=== PATIENT | female | born 1960 | race Caucasian/White ===

== ENCOUNTER → 2016-07-31 | Outpatient (CLI) | payer OTHER ==
[~2016-07-31] MED LIST: ANS100 PO; CEPH500C PO; CHOL2000 PO; CYCL10TA6 PO; CYM60 PO; DULO60CA44 PO; FLX10 PO; LEVO75TA5 PO; ROPI0.5T15 PO; TRAM-10 PO; TRAZ1TAB8 PO
[2016-07-31 14:50] LABS: BASO % 0.3 %; BASO ABS # 0.02 K/uL (0-0.2); COMPLETE YES; HEMATOCRIT 41.1 % (37-47); IG% 0.1 %; LYMPH % 49.4 %; LYMPH ABS # 3.54 K/uL (1.2-3.4); MEAN CELL VOLUME 87.3 fL (80-100); MEAN CORPUSCULAR HEMOGLOBIN 28.9 pg (25-34); MEAN CORPUSCULAR HGB CONC 33.1 g/dl (32-36); MEAN PLATELET VOLUME 11.2 fL (7.4-10.4); MONO % 8.9 %; NEUT % 37.3 %; PLATELET COUNT 296 K/uL (130-400); RED BLOOD COUNT 4.71 M/uL (4.2-5.4); WHITE BLOOD COUNT 7.17 K/uL (4.8-10.8)
[2016-07-31 15:03] LABS: PROTHROMBIN TIME (PATIENT) 10.2 SECONDS (9.0-12.0)
[2016-07-31 15:15] LABS: URINE APPEARANCE CLEAR (CLEAR); URINE BILIRUBIN NEG (NEG); URINE COLOR YELLOW; URINE EPITHELIAL CELL AUTO >30 /lpf (0-5); URINE NITRITE NEG (NEG); URINE SPECIFIC GRAVITY 1.007 (1.000-1.030); UROBILINOGEN NEG (NEG)
[2016-07-31 15:16] LABS: BLOOD UREA NITROGEN 16 mg/dl (7-18); BUN/CREATININE RATIO 16.5 (10-20); CALCIUM 8.9 mg/dl (8.5-10.1); CARBON DIOXIDE 30 mmol/L (21-32); CHLORIDE 100 mmol/L (98-107); GLUCOSE 80 mg/dl (70-99); SODIUM 137 mmol/L (136-145)
[2016-07-31 15:17] LABS: MANUAL MICROSCOPIC REQUIRED? NO; REVIEW REQ? NO
== END | disposition home or self-care (01) ==
LOC: C.LABBC 11:15
PROVIDERS: ATTEND Orthopaedic Surgery Orthopaedic Surgery of the Spine
DX: Z01.812 Encounter for preprocedural laboratory examination (principal)

== ENCOUNTER 2016-08-03 08:55 | Observation (INO) | payer OTHER ==
[2016-07-20 09:35] VITALS: BMI 32.0
--- NOTE | 2016-08-01 15:39 | HISTORY & PHYSICAL EXAMINATION ---
DATE OF ADMISSION: 08/03/2016 SUBJECTIVE CHIEF COMPLAINT: She presents with neck pain, left and right shoulder pain. HISTORY OF PRESENT ILLNESS: Patito is a very pleasant 56-year-old female. She is 56 years of age with signs and symptoms of cervical spondylosis and neck pain, ongoing for several months in duration. It is worsening over time. She has tried some conservative care. She was interested in the possibility of surgical intervention to help with some of her symptoms on today's visit. PAST MEDICAL HISTORY: Includes: 1. Problems with anesthesia. 2. Thyroid disease. 3. Fibromyalgia. PRIOR SURGICAL HISTORY: Includes: 1. A hysterectomy. 2. Neck fusion in 2010. 3. Cholecystectomy. 4. Lumpectomy. ALLERGIES: SHE HAS ALLERGIES TO PENICILLINS. CURRENT MEDICATION LIST: Includes vitamin D, Flexeril, trazodone, Voltaren, Cymbalta, Synthroid, Requip, and tramadol. FAMILY AND SOCIAL HISTORY: She is , mother of 2 children. No alcohol or tobacco use. Moderately active lifestyle. She is currently on disability from symptoms of fibromyalgia. REVIEW OF SYSTEMS: MUSCULOSKELETAL: Positive for stiffness, joint pain and weakness. CONSTITUTIONAL: Positive for fatigue, headaches. CARDIOVASCULAR: Negative for any chest pain, palpitations. RESPIRATORY: No asthma or wheezing. GASTROINTESTINAL: No symptoms of nausea or vomiting. GENITOURINARY: Positive for urgency or frequency. PSYCHIATRIC: Positive for some sleep issues. NEUROLOGICAL: Positive for numbness and tingling. HEME/LYMPH: Positive for easiness to bruise. PHYSICAL EXAMINATION: CONSTITUTIONAL: Alert and oriented x3. She is not in too much distress here in the office. She is 5 feet 6 inches, 190 pounds. PSYCHIATRIC: She is alert and oriented x3. HEENT: Normal. NECK: Pharynx is midline and movable. CARDIOVASCULAR: Normal S1, S2; no S3 was auscultated. No heart palpitations. LYMPHATIC: No adenopathy. NEUROLOGICAL: She is weak on the biceps function and triceps function and indian nanny strength on the left side, compared to the right. She is 5/5 on the right side. No fasciculations or clonus or obvious spinal cord compression was noted upon examination. MUSCULOSKELETAL EXAMINATION: Decreased range of motion of the cervical spine. Pain with flexion and extension of the cervical spine, slight pain with percussion. DIAGNOSTIC AND TEST RESULTS: X-rays reviewed in the office today demonstrate excellent construct of a cervical spine performed by Dr. Kent several years ago. Looks like an MRI does show some difficulty below the fusion site, little more mildly above the fusion site. ASSESSMENT AND DIAGNOSES: 1. Cervical spondylosis. 2. Disc protrusion. 3. Worsening clinical scenario with increasing neurological deficits of upper extremities. PLAN: We are going to offer her surgical intervention. We are scheduling her for surgery for anterior cervical discectomy and fusion with left iliac crest bone graft using the Globus Transition system or Coalition system. We have gone over the procedure in detail and described the risks and benefits involved. We also talked about anticipated recovery times. We will follow her up 10-14 days postop for suture removal, staple removal, bandage change. We did provide her with cervical neck collar fitted and asked that she bring that with her on the day of surgery. We will provide her with pain medication as well.
[2016-08-03] VITALS (12 sets, daily range): BP systolic 119–161; BP diastolic 69–85; PULSE 75–103; TEMP 36.2–36.7; O2SAT 93–98; Ht 167.6 cm; Wt 91.2 kg
[~2016-08-03] VITALS: Ht 167.6 cm; Wt 91.2 kg
--- NOTE | 2016-08-03 06:46 | History & Physical Bridge Note ---
H&P Re-Evaluation Bridge Note: I have examined the patient, reviewed the History & Physical and in the interval since the performance of the History & Physical I have noted the following changes of clinical significance: No changes noted
[~2016-08-03 08:55] MED LIST changes: -CEPH500C PO; +CLINDAMYCIN 600 MG/54 ML D5W 54 ML IV SCH; -CYCL10TA6 PO; -DULO60CA44 PO; +LACTATED RINGER'S 1000ML 1,000 ML IV SCH; +NSS 1000ML IV SCH
[2016-08-03] MEDS ORDERED: CLINDAMYCIN 600 MG/54 ML D5W IV ONE (09:14)
[2016-08-03] MEDS ORDERED: SCOPOLAMINE 1.5 MG TDSY TD ONE (09:53)
[2016-08-03] MEDS ORDERED: SCOPOLAMINE 1.5 MG TDSY TD SCH (10:00)
[2016-08-03] MEDS ORDERED: NEOSTIGMINE METHYLSULFATE 5 MG/5 ML SYR ONE (10:01)
[2016-08-03] MEDS ORDERED: ROCURONIUM BROMIDE 10 MG/ML 5 ML VIAL ONE (10:01)
[2016-08-03] MEDS ORDERED: LIDOCAINE HCL 2% 2 ML VIAL (20MG/ML) ONE (10:01)
[2016-08-03] MEDS ORDERED: FENTANYL CITRATE INJ 50 MCG/1 ML 2 ML VIAL ONE ×3 (10:01→11:46)
[2016-08-03] MEDS ORDERED: PROPOFOL IV EMULSION 10 MG/ML 20 ML VIAL IV ONE (10:01)
[2016-08-03] MEDS ORDERED: ONDANSETRON INJ 2 MG/ML 2 ML VIAL ONE (10:01)
[2016-08-03] MEDS ORDERED: DEXAMETHASONE SOD INJ 4 MG/ML VIAL ONE (10:01)
[2016-08-03] MEDS ORDERED: GLYCOPYRROLATE INJ 0.2 MG/ML VIAL ONE (10:01)
[2016-08-03] MEDS ORDERED: MIDAZOLAM HCL 1 MG/ML 2ML VIAL ONE ×2 (10:01→10:18)
[2016-08-03] MEDS ORDERED: BACITRACIN 50000 UNIT VIAL ONE (10:23)
[2016-08-03] MEDS ORDERED: GELATIN SPONGE SZ 100 ONE (10:23)
[2016-08-03] MEDS ORDERED: BUPIVACAINE/EPINEPHRINE 0.5% MPF 1:200,000 30 ML VIAL ONE (10:23)
[2016-08-03] MEDS ORDERED: THROMBIN FOR SOLN 20000 UNIT KIT ONE (10:23)
[2016-08-03] MEDS ORDERED: EpHEDrine SULFATE INJ 50 MG/ML AMP ONE (11:46)
--- NOTE | 2016-08-03 12:08 | [facility] Post Operative Brief Note ---
Immediate Operative Summary Operative Date Aug 03, 2016. Pre-Operative Diagnosis Cervical spondylosis, Disc protrusion Post-Operative Diagnosis same as pre-operative Procedure(s) Performed C6-C7 Anterior Cervical Discectomy and Fusion with Left Iliac Crest Bone Graft Surgeon Dr. Ramon Sims Customer Services Supervisor Surgeon(s) Azar Perez PA-C Estimated Blood Loss 20ml Findings coed compression Specimens NONE Complication(s) None Disposition Recovery Room / PACU
[2016-08-03] MEDS ORDERED: OXYCODONE/ACETAMINOPHEN 5-325 TAB PO PRN (12:15)
[2016-08-03] MEDS ORDERED: FLUMAZENIL 0.1 MG/1 ML 10 ML VIAL IV ONE (12:15)
[2016-08-03] MEDS ORDERED: DEXAMETHASONE INJ 8 MG in SYRINGE 0 ML IV PRN (12:15)
[2016-08-03] MEDS ORDERED: MAGNESIUM HYDROXIDE SUSP 30 ML UDC PO PRN (12:15)
[2016-08-03] MEDS ORDERED: ONDANSETRON INJ 2 MG/ML 2 ML VIAL IV PRN ×2 (12:15→12:30)
[2016-08-03] MEDS ORDERED: LORAZEPAM INJ 0.5 MG in SYRINGE 0.75 ML IV PRN (12:15)
[2016-08-03] MEDS ORDERED: ACETAMINOPHEN IV 1,000 MG in EMPTY BAG 0 ML IV PRN (12:15)
[2016-08-03] MEDS ORDERED: RACEPINEPHRINE 2.25% NEBU SOLN 0.5 ML VIAL INH PRN (12:15)
[2016-08-03] MEDS ORDERED: NALOXONE HCL 0.4 MG/1 ML VIAL/CARP IV PRN ×2 (12:15→12:30)
--- NOTE | 2016-08-03 12:19 | DIAGNOSTIC IMAGING REPORT ---
INTRAOPERATIVE CERVICAL SPINE SINGLE VIEW CLINICAL HISTORY: Anterior cervical discectomy C6-7 COMPARISON STUDY: 07/29/2015 FINDINGS: A single intraoperative fluoroscopic spot images is provided for interpretation. 1 seconds of fluoroscopic time was utilized. Postsurgical changes are evident. There is evidence of a prior anterior cervical discectomy and corpectomy at the C5 level. There is an anterior metallic plate with screws at the C4 and C6 level. The C6-7 surgical level is not visualized due to overlying shoulders. IMPRESSION: Intraoperative radiograph as described above. Electronically signed by: Amando Powers M.D. 08/03/2016 12:18 PM Dictated Date/Time: 08/03/2016 12:15 PM
[2016-08-03] MEDS ORDERED: HYDROmorphone INJ 1 MG/ML SYR ONE (12:24)
--- NOTE | 2016-08-03 12:26 | OPERATIVE REPORT ---
DATE OF OPERATION: 08/03/2016 PREOPERATIVE DIAGNOSIS: Spinal cord compression C6-C7 cervical spine. POSTOPERATIVE DIAGNOSIS: Same. PROCEDURE: Single level ACDF cervical spine at C6-C7 with left structural autograft of the left iliac crest. SURGEON: Dr. Sims. ANGLE DOZER OPERATOR: Azar Perez PA-C. COMPLICATIONS: Zero. BLOOD LOSS: 20 mL in total. Sponge and needle count correct at the close of the procedure. IMPLANTS USED: By the Sense of Skin. DESCRIPTION OF PROCEDURE: The patient was taken to the operating room and general intubated anesthetic provided to the patient, kept supine, scrubbed, prepped, draped in usual sterile fashion. We made a transverse skin incision dissecting the soft tissue in the cervical spine region. We came right down on the vertebral body. We were able to count down to the C6-7 interspace using the old plate as a guide. We did a formal discectomy. I was back through and the posterior longitudinal ligament every visible piece of disc material was evacuated. I was pleased with the decompression. We then went to the left iliac crest, made a skin incision, fascial incision, harvested a piece of structural autograft to fit into discectomy. This structural autograft packed the Globus implant called Coalition, transfixed superior and inferior. We irrigated and closed in layers, cervical spine with 4-0 Monocryl, Steri-Strips on the skin over a [place] drain that was functional. The crest closed with 1 Vicryl, 2-0 and 3-0 nylon on the skin. Sterile dressings applied throughout. Cervical collar applied. The patient extubated to PACU stable. No complications. I attest to the content of the Intraoperative Record and any orders documented therein. Any exceptio ns are noted below.
[2016-08-03] MEDS ORDERED: HYDROmorphone INJ 1 MG/ML SYR IV PRN (12:30)
[2016-08-03] MEDS ORDERED: PROMETHAZINE HCL INJ 12.5 MG in SODIUM CHLORIDE 0.9% 50ML 50 ML IV PRN (12:30)
[2016-08-03] MEDS ORDERED: ATROPINE SULFATE 0.1 MG/ML 5ML SYR IV PRN (12:30)
[2016-08-03] MEDS ORDERED: LABETALOL HCL IV 5 MG/ML 20ML IV PRN (12:30)
[2016-08-03] MEDS ORDERED: EpHEDrine SULFATE INJ 50 MG/ML AMP IV PRN (12:30)
[2016-08-03] MEDS ORDERED: FLUMAZENIL 0.1 MG/1 ML 10 ML VIAL IV PRN (12:30)
[2016-08-03] MEDS ORDERED: DiphenhydrAMINE HCL 50 MG/ML VIAL ONE (13:04)
[2016-08-03] MEDS ORDERED: NURSING VERBAL MED ORDER ONE ×3 (13:05→22:45)
--- NOTE | 2016-08-03 13:20 | Anesthesiology Progress Note ---
Anesthesia Post Op Note Date & Time Aug 03, 2016 at 13:20 Vital Signs Pain Intensity: 7 Vital Signs Past 12 Hours Date Time Temp Pulse Resp B/P Pulse Ox O2 Delivery O2 Flow Rate FiO2 08/03/16 13:10 84 18 145/61 96 Nasal Cannula 4 08/03/16 13:00 96 22 140/79 100 Nasal Cannula 4 08/03/16 12:50 82 12 141/68 95 Nasal Cannula 4 08/03/16 12:40 84 14 157/76 95 Nasal Cannula 4 08/03/16 12:30 84 13 162/77 100 Mask 10 08/03/16 12:20 86 15 147/69 99 Mask 10 08/03/16 12:13 36.0 99 19 140/73 99 Mask 10 08/03/16 09:11 36.6 87 20 161/85 97 Room Air Notes Mental Status: alert / awake / arousable, participated in evaluation Pt Amnestic to Procedure: Yes Nausea / Vomiting: adequately controlled Pain: adequately controlled Airway Patency, RR, SpO2: stable & adequate BP & HR: stable & adequate Hydration State: stable & adequate Anesthetic Complications: no major complications apparent
[2016-08-03] MEDS ORDERED: IV FLUIDS COMPLETED PRN (13:45)
[2016-08-03] MEDS: ACETAMINOPHEN IV 1000MG/100ML IV PRN (15:58)
[2016-08-03] MEDS: SODIUM CHLORIDE 0.9% 1000ML 1,000 ML IV SCH (15:58)
[2016-08-03] MEDS: CHECK SCOPOLAMINE PATCH PLACEMENT SCH ×2 (15:59→22:38)
[2016-08-03] MEDS: HYDROmorphone INJ 0.5 MG/0.5 ML SYR IV PRN ×2 (17:28→22:38)
[2016-08-03] MEDS: DEXAMETHASONE INJ 6 MG in SYRINGE 0 ML IV SCH (17:31)
[2016-08-03] MEDS: CLINDAMYCIN IV 600 MG in DEXTROSE 5% ADD-VANTAGE 50ML 50 ML IV SCH (18:19)
[2016-08-03] MEDS: DOCUSATE SODIUM 100 MG CAP PO SCH (20:20)
[2016-08-03] MEDS: CHOLECALCIFEROL 1000 INTER.UNIT TAB PO SCH (20:21)
[2016-08-03] MEDS ORDERED: TRAZODONE HCL 100 MG TAB PO SCH (21:00)
[2016-08-03] MEDS ORDERED: ROPINIROLE HCL 0.25 MG TAB PO SCH (21:00)
[2016-08-03] MEDS ORDERED: FLURBIPROFEN 100 MG PO SCH (21:00)
[2016-08-03] MEDS ORDERED: COUGH DROP (SUGAR FREE) LOZ 24 LOZ/1 BOX ONE (22:33)
[2016-08-03] MEDS ORDERED: COUGH DROP (SUGAR FREE) LOZ 24 LOZ/1 BOX PO PRN (23:00)
[2016-08-04] VITALS (13 sets, daily range): BP systolic 115–133; BP diastolic 68–73; PULSE 84–96; TEMP 36.5–36.8; O2SAT 92–98
[2016-08-04] MEDS: SODIUM CHLORIDE 0.9% 1000ML 1,000 ML IV SCH (02:02)
[2016-08-04] MEDS: CLINDAMYCIN IV 600 MG in DEXTROSE 5% ADD-VANTAGE 50ML 50 ML IV SCH ×2 (02:02→10:24)
[2016-08-04] MEDS: DEXAMETHASONE INJ 6 MG in SYRINGE 0 ML IV SCH ×2 (02:03→10:24)
[2016-08-04] MEDS: HYDROmorphone INJ 0.5 MG/0.5 ML SYR IV PRN (04:23)
[2016-08-04] MEDS ORDERED: LEVOTHYROXINE 75 MCG TAB PO SCH (06:00)
[2016-08-04] MEDS: ACETAMINOPHEN IV 1000MG/100ML IV PRN (06:29)
--- NOTE | 2016-08-04 07:25 | Discharge Instructions ---
Discharge Instructions Admission Reason for Admission: Cervical Spinal Stenosis, C6-C7 Disc Herniation Discharge Discharge Diagnosis / Problem: cord compression Discharge Goals Goal(s): Improve function Activity Recommendations Activity Limitations: as noted below Lifting Limitations: until after follow-up appointment Exercise/Sports Limitations: until after follow-up appointment May Resume Sexual Activity: after follow-up appointment Shower/Bathe: keep incision dry Driving or Machine Use: home, rest recover . Instructions / Follow-Up Instructions / Follow-Up MEDICATIONS: Please take your prescriptions as instructed at your pre-op appointment. SPECIAL CARE: The following information is intended to answer some of the common questions and concerns regarding your surgery. Each patient is an individual and receives individual counselling throughout the course of treatment, from diagnosis to surgery all the way through recovery. What follows is not an exhaustive list, but should be a useful guide to some of the common questions and concerns patients have regarding their surgeries. These are not provided to keep you from calling us; rather, they give you something accurate and concrete to reference as you recover from your procedure. If you need us, we are available to you. As always, if you are not sure about something, call us at [phone]. MEDICAL EMERGENCIES: For these conditions, call 911 or go to your local hospital-based Emergency Department - not [facility] or equivalent. * Paralysis * Severe chest pain or difficulty breathing * Swelling or redness of either leg Spine procedures can be rather complex and though complications are rare, they do occur. In such cases, effective advice regarding emergency situations cannot always be addressed over the telephone. You may be referred to the emergency department for more effective management of your problem. Activity Limitations: It is important to give your body time to heal, so please limit your activities : * In general, don't do anything that moves your spine too much. You should avoid contact sports, twisting or heavy lifting while you recover. * 5-10 pounds is all you should attempt to lift. * You should not plan on driving for approximately 3 weeks and you should avoid traveling more than 30-45 minutes at a time. Longer trips should be broken down with walking breaks spaced appropriately. * Physical therapy is not usually required. * Walking and good posture practices will help you recover and regain your function. * Avoid straining or sudden changes in position. * In general, the goal is to take it easy and recover. Don't cause any new problems. Just relax. Showers: * Do not take a bath, use a Jacuzzi or hot tub or otherwise submerge your incision. * It is usually safe to take a shower 4-5 days after your surgery. * Your incision does not require any special creams or ointments. * Simply clean it with soap and water, dry and re-dress with a clean bandage afterwards. Incision: * Keep incision clean, dry and protected until your first follow-up appointment. * Some amount of drainage and redness is normal. Any drainage should be fairly clear and not have a foul odor. * If you feel anything is wrong or you have excessive drainage, please call us. * Your stitches and beti will be removed 10-14 days after your surgery. At the time of your first post-op visit. * Neck surgeries are typically closed with a suture underneath the skin. The steri-strips over the incision should be maintained until we see you in the office. Bracing: * You may be provided with a back or neck brace to encourage good posture and prevent injury. It will remind you not to do too much as you heal and will alert others to the fact that you have had a surgery. * Back braces may be removed for showers and when you are resting at home. They must be worn when you are walking around for any period of time or for travel. * For neck surgery, you will likely be provided with two cervical collars. The soft collar ([place] or foam rubber) is worn most commonly throughout the day and while sleeping. The plastic collar (provided at the hospital) is for showering/bathing. * Except while eating, collars should remain in place. More specifically, bracing is provided for a purpose and should be worn. * Please obtain your brace or collars prior to your operation and bring them to the hospital with you on the day of surgery. * You should also bring your collars to your post-op appointment with Dr. Sims. You should always take good care of your body and practice healthy habits, especially following surgery. You should: * Follow your doctor's treatment plan * Sit and stand properly with good posture (ears over shoulders, shoulders over hips) Don't slouch * Learn to lift correctly * Exercise regularly (low-impact aerobic exercise is especially good, but check with your doctor first) * Generally, be up and walking for 5-10 minutes at a time at least 3-4 times per day from the day you get home * Increasing walking to tolerance until you can walk for 20-30 minutes at a time * Attain and maintain a healthy body weight * Eat healthy foods ( a well-balanced, low-fat diet rich in fruits and vegetables) and get enough calcium * Avoid excessive use of alcohol When to call our office - If you notice any of the following: * Increased pain not relieve by pain medicine * Fevers greater then 100 degrees F, chills or flu symptoms * Increased redness around incision * Drainage from the incision that is not clear * Any foul smelling drainage * Swelling or fluid collection beneath the skin Miscellaneous: * In the hospital, you may be given a walker or cane for support while walking. These are temporary needs and are intended to prevent injuries due to falls. You may discontinue them when you feel strong and steady enough on your feet. * Sleep in a comfortable position. We find that many patients find a lounge chair or recliner with several pillows to be beneficial in the early post-operative period. * The support stockings should be used for 7-10 days and may be discontinued when you are back to walking more and conducting usual household activities. No problem is insignificant. We are here to help you and get you well. Contact us at [phone]. Definitions: Foraminotomy: If part of the disc or a bone spur (osteophyte) is pressing on a nerve as it leaves the vertebra (through an exit called the foramen), a foraminotomy may be done. Otomy means "to make an opening." A foraminotomy is making the opening of the foramen larger, so the nerve can exit without being compressed. Laminotomy: Similar to the foraminotomy, a laminotomy makes a larger opening, this time in your bony plate protecting your spinal canal and spinal cord (the lamina). The lamina may be pressing on your nerve, so the surgeon may make more room for the nerves using a laminotomy. Laminectomy: Sometimes, a laminotomy is not sufficient. The surgeon may need to remove all or part of the lamina. This procedure is called a laminectomy. This can often be done at many levels without any harmful effects. Current Hospital Diet Patient's current hospital diet: Clear Liquid Diet Discharge Diet Recommended Diet: Regular Diet (start slow, advance as toerated) Fluid Restriction: None Procedures Procedures Performed: C6-C7 Anterior Cervical Discectomy and Fusion with Left Iliac Crest Bone Graft Pending Studies Studies pending at discharge: no Medical Emergencies . Who to Call and When: Medical Emergencies: If at any time you feel your situation is an emergency, please call 911 immediately. . Non-Emergent Contact Non-Emergency issues call your: Surgeon Call Non-Emergent contact if: temperature is above 101.5 . "Provider Documentation" section prepared by Ramon Sims. VTE Core Measure Inpt VTE Proph given/why not?: Treatment not tolerated
[2016-08-04] MEDS: CHECK SCOPOLAMINE PATCH PLACEMENT SCH (07:57)
[2016-08-04] MEDS: HYDROCODONE/ACETAMOPHEN 5/325MG TAB PO PRN ×2 (08:09→13:25)
[2016-08-04] MEDS ORDERED: DULOXETINE HCL 60 MG CAP PO SCH (09:00)
--- NOTE | 2016-08-04 09:07 | DISCHARGE SUMMARY ---
SUBJECTIVE: Minimal complaints of pain. Alert, oriented. No chest pain, shortness of breath, swallowing difficulty. OBJECTIVE: Vital signs stable. Neurologically intact. Lab work not indicated. ASSESSMENT: Status post single-level anterior cervical discectomy and fusion cervical spine, improved, stable. DISPOSITION: Includes instruction, precautions, education given to her and in the office. We will discharge her home later today around lunchtime. We will see her back in the office in approximately 10 days.
[2016-08-04] MEDS: CHOLECALCIFEROL 1000 INTER.UNIT TAB PO SCH (09:20)
[2016-08-04] MEDS: DOCUSATE SODIUM 100 MG CAP PO SCH (10:24)
--- NOTE | 2016-08-04 13:34 | Anesthesiology Progress Note ---
Anesthesia Post Op Note Date & Time Aug 04, 2016 at 08:00 Vital Signs Vital Signs Past 12 Hours Date Time Temp Pulse Resp B/P Pulse Ox O2 Delivery O2 Flow Rate FiO2 08/04/16 12:54 36.8 91 17 95 Room Air 08/04/16 12:30 36.8 84 17 133/73 95 Room Air 1.0 91 08/04/16 12:21 36.8 84 17 133/73 95 Room Air 08/04/16 11:12 92 14 98 Room Air 08/04/16 10:15 36.8 84 17 133/73 95 Room Air 1.0 91 08/04/16 10:15 36.6 92 17 131/69 95 Room Air 08/04/16 10:15 98 08/04/16 08:20 36.6 91 16 124/68 92 Room Air 08/04/16 08:05 Room Air 08/04/16 08:02 36.6 92 14 127/72 95 Room Air 1.0 90 08/04/16 07:29 92 14 95 Room Air 08/04/16 06:15 36.6 90 17 127/72 95 Room Air 08/04/16 04:12 36.5 85 16 115/68 96 Room Air 1.0 08/04/16 03:26 96 14 94 Nasal Cannula 1.0 08/04/16 02:04 36.5 84 16 115/68 93 Nasal Cannula 1.0 Humidified Oxygen Notes Mental Status: alert / awake / arousable, participated in evaluation Pt Amnestic to Procedure: Yes Nausea / Vomiting: adequately controlled Pain: adequately controlled Airway Patency, RR, SpO2: stable & adequate BP & HR: stable & adequate Hydration State: stable & adequate Anesthetic Complications: no major complications apparent pt breathing comfortable, pt states they have no difficulties breathing and no obvious s/s of airway obstruction
[2016-08-05] MEDS ORDERED: BISACODYL 10 MG SUPP PR PRN (06:00)
[2016-08-05] MEDS ORDERED: BISACODYL 5 MG TABEC PO PRN (06:00)
== END 2016-08-04 13:38 | disposition home or self-care (01) ==
LOC: ENRESERVTM → ENRESERVDT → C.ACU 08:55 → C.3E 12:12
PROVIDERS: ADMIT Orthopaedic Surgery Orthopaedic Surgery of the Spine; ATTEND Orthopaedic Surgery Orthopaedic Surgery of the Spine
DX: M47.12 Other spondylosis with myelopathy, cervical region (principal); M50.223 Other cervical disc displacement at C6-C7 level; M79.7 Fibromyalgia; E07.9 Disorder of thyroid, unspecified; Z90.79 Acquired absence of other genital organ(s); Z90.710 Acquired absence of both cervix and uterus; Z88.0 Allergy status to penicillin

== ENCOUNTER 2016-08-19 14:37 | Emergency (ER) | payer OTHER ==
[~2016-08-19] VITALS: Ht 167.6 cm; Wt 91.0 kg
[~2016-08-19 14:37] MED LIST changes: -CLINDAMYCIN 600 MG/54 ML D5W 54 ML IV SCH; -LACTATED RINGER'S 1000ML 1,000 ML IV SCH; -NSS 1000ML IV SCH
[2016-08-19 14:39] VITALS: TEMP 36.9; Ht 167.6 cm; Wt 91.0 kg
[2016-08-19] MEDS ORDERED: DULO60CA44 PO (14:53)
[2016-08-19] MEDS ORDERED: CYCL10TA6 PO (14:53)
[2016-08-19 15:19] LABS: BASO % 0.2 %; BASO ABS # 0.02 K/uL (0-0.2); COMPLETE YES; EOS % 2.7 %; HEMATOCRIT 39.1 % (37-47); IG% 0.2 %; LYMPH % 40.3 %; LYMPH ABS # 3.42 K/uL (1.2-3.4); MEAN CELL VOLUME 86.3 fL (80-100); MEAN CORPUSCULAR HEMOGLOBIN 29.4 pg (25-34); MEAN PLATELET VOLUME 10.2 fL (7.4-10.4); MONO % 6.6 %; PLATELET COUNT 316 K/uL (130-400); RED BLOOD COUNT 4.53 M/uL (4.2-5.4); WHITE BLOOD COUNT 8.48 K/uL (4.8-10.8)
--- NOTE | 2016-08-19 15:28 | EMERGENCY ROOM VISIT NOTE ---
History First contact with patient: 14:49 Chief Complaint: WOUND INFECTION Stated Complaint: INCISION INFECTED Nursing Triage Summary: Pt had neck surgery by Dr Sims 2 weeks ago Pt concerned incision may be infected Incision started draining last night History of Present Illness The patient is a 56 year old female who presents to the Emergency Room with complaints of incision and drainage. The patient had neck surgery by Dr. Sims 2 weeks ago. It was an anterior approach. The patient states she has been doing very well. She states that last night she noticed a spot on the right side of the incision began to drain a small amount of pus. She states she has had chills, headache and flulike symptoms. She states that she tends to get headaches. She denies any earache, sore throat, cough. She contacted Dr. Das and was referred to the emergency department. Review of Systems A 10 system review of systems was completed with positives and pertinent negatives listed in the HPI. Past Medical/Surgical History Medical Problems: (1) Cervical disc disease Social History Smoking Status: Never Smoker Housing Status: lives with family Current/Historical Medications Scheduled Cephalexin Monohydrate (Keflex), 500 MG PO TID Cholecalciferol (Vitamin D3), 2 CAP PO BID Duloxetine Hcl (Cymbalta), 60 MG PO QAM Flurbiprofen (Flurbiprofen), 100 MG PO QPM Levothyroxine Sodium (Levothyroxine Sodium), 1 TAB PO QAM Ropinirole (Requip), 0.5 MG PO QPM Trazodone Hcl (Desyrel), 100 MG PO HS Scheduled PRN Cyclobenzaprine Hcl (Flexeril), 10 MG PO Q6 PRN for Pain Tramadol (Ultram), 50 MG PO Q4H PRN for Pain Allergies Coded Allergies: Penicillins (Verified Allergy, Unknown, RASH, 08/19/16) Physical Exam Vital Signs Date Time Temp Pulse Resp B/P Pulse Ox O2 Delivery O2 Flow Rate FiO2 08/19/16 16:00 75 18 138/78 99 08/19/16 14:39 36.9 105 18 149/90 94 Room Air Physical Exam VITALS: Vitals are noted on the nurse's note and reviewed by myself. Vital signs stable. The patient is afebrile. GENERAL: This is a 56-year-old female, in no acute distress, nondiaphoretic, well-developed well-nourished. SKIN: There is a healing surgical incision present in the anterior neck. The right side of the incision reveals a pinpoint area of purulent drainage. There are no visible sutures. There is no tenting of the skin. Capillary reflex less than 2 seconds. HEAD: Normocephalic atraumatic. EARS: External auditory canals clear, tympanic membranes pearly hager without erythema or effusion bilaterally. EYES: Pupils equal round and reactive to light and accommodation. Conjunctivae without injection, sclerae without icterus. Extraocular movements intact. NOSE: Patent, turbinates without inflammation or discharge. MOUTH: Mucous membranes moist. Tonsils are not enlarged. Pharynx without erythema or exudate. Uvula midline. Airway patent. Tongue does not deviate. NECK: Supple without nuchal rigidity. No JVD. HEART: Regular rate and rhythm without murmurs gallops or rubs. LUNGS: Clear to auscultation bilaterally without wheezes, rales or rhonchi. No retractions or accessory muscle use. MUSCULOSKELETAL: No muscle atrophy, erythema, or edema noted. Full range of motion in all extremities.. Normal gait. Strength 5/5 throughout. NEURO: Patient was alert and oriented to person place and time. No focal neurological deficits. Medical Decision & Procedures Laboratory Results 08/19/16 15:06 Red Blood Count 4.53, Mean Corpuscular Volume 86.3, Mean Corpuscular Hemoglobin 29.4, Mean Corpuscular Hemoglobin Concent 34.0, Mean Platelet Volume 10.2, Neutrophils (%) (Auto) 50.0, Lymphocytes (%) (Auto) 40.3, Monocytes (%) (Auto) 6.6, Eosinophils (%) (Auto) 2.7, Basophils (%) (Auto) 0.2, Neutrophils # (Auto) 4.23, Lymphocytes # (Auto) 3.42, Monocytes # (Auto) 0.56, Eosinophils # (Auto) 0.23, Basophils # (Auto) 0.02 08/19/16 15:06 Test 08/19/16 15:06 White Blood Count 8.48 K/uL (4.8-10.8) Red Blood Count 4.53 M/uL (4.2-5.4) Hemoglobin 13.3 g/dL (12.0-16.0) Hematocrit 39.1 % (37-47) Mean Corpuscular Volume 86.3 fL (80-100) Mean Corpuscular Hemoglobin 29.4 pg (25-34) Mean Corpuscular Hemoglobin Concent 34.0 g/dl (32-36) Platelet Count 316 K/uL (130-400) Mean Platelet Volume 10.2 fL (7.4-10.4) Neutrophils (%) (Auto) 50.0 % Lymphocytes (%) (Auto) 40.3 % Monocytes (%) (Auto) 6.6 % Eosinophils (%) (Auto) 2.7 % Basophils (%) (Auto) 0.2 % Neutrophils # (Auto) 4.23 K/uL (1.4-6.5) Lymphocytes # (Auto) 3.42 K/uL (1.2-3.4) Monocytes # (Auto) 0.56 K/uL (0.11-0.59) Eosinophils # (Auto) 0.23 K/uL (0-0.5) Basophils # (Auto) 0.02 K/uL (0-0.2) RDW Standard Deviation 45.0 fL (36.4-46.3) RDW Coefficient of Variation 14.4 % (11.5-14.5) Immature Granulocyte % (Auto) 0.2 % Immature Granulocyte # (Auto) 0.02 K/uL (0.00-0.02) Anion Gap 7.0 mmol/L (3-11) Est Creatinine Clear Calc Drug Dose 73.8 ml/min Estimated GFR () 74.9 Estimated GFR (Non- 64.6 BUN/Creatinine Ratio 15.6 (10-20) Calcium Level 9.3 mg/dl (8.5-10.1) Total Bilirubin 0.4 mg/dl (0.2-1) Aspartate Amino Transf (AST/SGOT) 21 U/L (15-37) Alanine Aminotransferase (ALT/SGPT) 39 U/L (12-78) Alkaline Phosphatase 122 U/L (45-117) Total Protein 7.3 gm/dl (6.4-8.2) Albumin 3.5 gm/dl (3.4-5.0) Globulin 3.8 gm/dl (2.5-4.0) Albumin/Globulin Ratio 0.9 (0.9-2) ED Course The patient was seen and examined. Previous visits were reviewed. She does not have a fever. She does not have a leukocytosis. The patient had a pinpoint pustule-like area to the right side of the incision. I suspect that this is in the area of the absorbable suture. There is no significant swelling , erythema, fluctuance or edema. I feel that this more likely represents irritation and a small pustule related to absorbable suture and not truly a postoperative infection. A culture was obtained of the small drainage. The patient will be placed on Keflex empirically. She should contact Dr. barron office on Sunday to schedule a follow-up appointment. She should return with fevers or any other worsening symptoms. The patient was also seen and examined by who agrees with the assessment and treatment plan. Medical Decision Differential diagnosis includes cellulitis, pustule, postoperative infection, among others Impression Primary Impression: Draining postoperative wound Departure Information Dispostion Home / Self-Care Condition GOOD Prescriptions Cephalexin Monohydrate (Keflex) 500 Mg Cap 500 MG PO TID for 7 Days, #21 CAP Prov: Mimi Strange PA-C 08/19/16 Referrals Kaitlyn Mendoza (PCP) Ramon Sims, DO Patient Instructions My [facility] Additional Instructions Keflex every 8 hours for 7 days Return with fevers, swelling, worsening redness Otherwise, follow up with Dr. Sims next week Problem Qualifiers Primary Impression: Draining postoperative wound Encounter type: initial encounter Qualified Codes: T81.89XA - Other complications of procedures, not elsewhere classified, initial encounter
[2016-08-19 15:37] LABS: BUN/CREATININE RATIO 15.6 (10-20); CALCIUM 9.3 mg/dl (8.5-10.1); CREATININE 0.99 mg/dl (0.60-1.20); POTASSIUM 3.9 mmol/L (3.5-5.1)
[2016-08-19 15:40] LABS: ALB/GLOB RATIO 0.9 (0.9-2)
[2016-08-19] MEDS ORDERED: CEPH500C PO (15:41)
[2016-08-19 16:00] VITALS: BP 138/78; PULSE 75; O2SAT 99
--- NOTE | 2016-08-19 22:00 | EMERGENCY ROOM VISIT NOTE ---
ED Visit Note First contact with patient: 14:49 I have personally evaluated and examined this patient. I agree with assessment and plan of Genna Strange PA-C. Healing anterior neck approach for cervical surgery recently with some drainage from wound. Looks good without fluctuance, swelling, TTP, erythema. No respiratory issue. Given small exudate seems reasonable starting abx while awaiting culture. Follow up in 48 hours with surgeon.
--- NOTE | 2016-08-21 14:32 | Pharmacy Progress Note ---
ED Pharmacist Culture FollowUp Date of Service: Aug 21, 2016. Patient's surface wound cx from 08/19/16 is growing corynebacterium sp. This culture was taken from an anterior neck surgical incision. The provider's notes from that day reported the patient's wound did not appear infected as there was no erythema, no fluctuance, and no edema. No leukocytosis or L shift were noted on the patient's labs. Provider's felt pin-point drainage from one side of wound was due to local irritation from sutures. The patient was discharged with a Rx for Keflex 500mg TID x 7 days, which may or may not cover corynebacterium sp - sensitivities will not be reported. She was to f/u today with surgeon. No action required at this time.
== END 2016-08-19 16:02 | disposition home or self-care (01) ==
LOC: C.EDB 14:38 → C.EDD 16:02
DX: T81.89XA Other complications of procedures, not elsewhere classified, initial encounter (principal); Y84.9 Medical procedure, unspecified as the cause of abnormal reaction of the patient, or of later complication, without mention of misadventure at the time of the procedure; Z88.0 Allergy status to penicillin

== ENCOUNTER → 2017-01-09 | Outpatient (CLI) | payer OTHER ==
[~2017-01-09] MED LIST changes: +CYCL10TA6 PO; -CYM60 PO; +DULO60CA44 PO; -FLX10 PO
--- NOTE | 2017-01-10 07:45 | MAMMOGRAPHY REPORT ---
BILATERAL DIGITAL SCREENING MAMMOGRAM TOMOSYNTHESIS WITH CAD: 01/09/2017 CLINICAL HISTORY: Routine screening. Patient has no complaints. TECHNIQUE: Breast tomosynthesis in addition to standard 2D mammography was performed. Current study was also evaluated with a Computer Aided Detection (CAD) system. COMPARISON: Comparison is made to exams dated: 01/07/2016 mammogram, 01/05/2015 mammogram, 01/02/2014 mamm ogram - [facility], 10/29/2012 mammogram, 11/01/2011 mammogram, and 10/24/2011 [facility] BREAST COMPOSITION: There are scattered areas of fibroglandular density in both breasts. FINDINGS: The parenchymal pattern is unchanged. No developing mass, architectural distortion or clus ter of suspicious microcalcifications is seen in either breast. IMPRESSION: ACR BI-RADS CATEGORY 2: BENIGN There is no mammographic evidence of malignancy. A 1 year screening mammogram is recommended. The pa tient will receive written notification of the results. Approximately 10% of breast cancers are not detected with mammography. A negative mammographic report should not delay biopsy if a clinically suggestive mass is present. Olivia Thomas M.D. ay/:01/09/2017 18:09:20 Aquatics Manager: Tamera Carey, [facility] letter sent: Normal 1/2 BI-RADS Code: ACR BI-RADS Category 2: Benign
== END | disposition home or self-care (01) ==
LOC: C.MAMM 08:44
PROVIDERS: ATTEND Nurse Practitioner Family
DX: Z12.31 Encounter for screening mammogram for malignant neoplasm of breast (principal)

== ENCOUNTER → 2017-04-16 | Outpatient (CLI) | payer OTHER ==
[~2017-04-16] MED LIST changes: -TRAZ1TAB8 PO; +TRAZ1TAB9 PO
--- NOTE | 2017-04-16 08:09 | DIAGNOSTIC IMAGING REPORT ---
RIGHT GLUTEAL ULTRASOUND CLINICAL HISTORY: ENLARGING MASS RT BUTTOCK COMPARISON STUDY: None FINDINGS: Corresponding to the palpable mass, there is a subcutaneous mixed echogenicity shadowing 13 mm nodule within the right gluteal region. Immediately adjacent to this is a 5 mm hypoechoic nodule. Given the location of the nodule, fat necrosis is within the differential. The lesion however has a nonspecific ultrasonographic appearance. IMPRESSION: The palpable right gluteal mass corresponds to a mixed echogenicity 13 mm shadowing nodule with an adjacent 5 mm hypoechoic nodule. This lesion has a nonspecific ultrasonographic appearance. Electronically signed by: Amando Powers M.D. 04/16/2017 8:08 AM Dictated Date/Time: 04/16/2017 8:03 AM
== END | disposition home or self-care (01) ==
LOC: C.ULTR 07:25
PROVIDERS: ATTEND Nurse Practitioner Family
DX: R22.9 Localized swelling, mass and lump, unspecified (principal)

== ENCOUNTER → 2017-05-08 | Outpatient (CLI) | payer OTHER ==
[~2017-05-08] MED LIST changes: +DULO-24 PO; +HYDR-5688 PO; +TRAZ-122 PO; -TRAZ1TAB9 PO
[2017-05-08 15:44] LABS: HEMATOCRIT 41.9 % (37-47); HEMOGLOBIN 13.8 g/dL (12.0-16.0); MEAN CELL VOLUME 88.8 fL (80-100); MEAN CORPUSCULAR HEMOGLOBIN 29.2 pg (25-34); MEAN CORPUSCULAR HGB CONC 32.9 g/dl (32-36); MEAN PLATELET VOLUME 10.9 fL (7.4-10.4); PLATELET COUNT 289 K/uL (130-400); RED CELL DISTRIBUTION WIDTH SD 45.6 fL (36.4-46.3); WHITE BLOOD COUNT 6.91 K/uL (4.8-10.8)
[2017-05-08 15:54] LABS: BLOOD UREA NITROGEN 18 mg/dl (7-18); CALCIUM 9.3 mg/dl (8.5-10.1); CARBON DIOXIDE 29 mmol/L (21-32); CREATININE 1.09 mg/dl (0.60-1.20); GLUCOSE 129 mg/dl (70-99); POTASSIUM 3.7 mmol/L (3.5-5.1); SODIUM 136 mmol/L (136-145)
[2017-05-08 16:05] LABS: BASO % 0.4 %; BASO ABS # 0.03 K/uL (0-0.2); EOS % 4.1 %; EOS ABS # 0.28 K/uL (0-0.5); IG# 0.01 K/uL (0.00-0.02); LYMPH % 51.2 %; LYMPH ABS # 3.54 K/uL (1.2-3.4); MONO % 4.3 %; NEUT % 39.9 %; NEUT ABS # 2.75 K/uL (1.4-6.5)
== END | disposition home or self-care (01) ==
LOC: C.LAB 14:41
PROVIDERS: ATTEND Surgery
DX: M79.9 Soft tissue disorder, unspecified (principal)

== ENCOUNTER → 2017-05-18 | Day surgery (SDC) | payer OTHER ==
[2017-05-09 13:51] VITALS: Ht 165.1 cm; Wt 90.5 kg
[~2017-05-18] VITALS: Ht 165.1 cm; Wt 90.5 kg
[~2017-05-18] MED LIST changes: +ATROPINE SULFATE 0.1 MG/ML 5ML SYR IV PRN; +BUPIVACAINE/EPINEPHRINE 0.5% MPF 1:200,000 30 ML VIAL ONE; +CLINDAMYCIN PHOS 150 MG/ML 2 ML VIAL IV SCH; -DULO60CA44 PO; +FENTANYL CITRATE INJ 50 MCG/1 ML 2 ML VIAL IV PRN; +FENTANYL CITRATE INJ 50 MCG/1 ML 2 ML VIAL ONE; +HYDROCODONE/ACETAMIN 5/325MG TAB PO PRN; +KETOROLAC TROMETHAMINE 30 MG/ML VIAL IV. PRN; +LACTATED RINGER'S 1000ML 1,000 ML IV SCH; +LIDOCAINE HCL 2% 2 ML VIAL (20MG/ML) ONE; +MIDAZOLAM HCL 1 MG/ML 2ML VIAL ONE; +ONDANSETRON INJ 2 MG/ML 2 ML VIAL IV PRN; +ONDANSETRON INJ 2 MG/ML 2 ML VIAL ONE; +PROPOFOL IV EMULSION 10 MG/ML 20 ML VIAL IV ONE; +SODIUM CHLORIDE 0.9% 1000ML 1,000 ML IV SCH; -TRAZ-122 PO; +TRAZ-162 PO
[2017-05-18 07:55] VITALS: TEMP 36.6
--- NOTE | 2017-05-18 08:00 | Discharge Instructions ---
Discharge Instructions Date of Service May 18, 2017. Visit Reason for Visit: Soft Tissue Mass Buttock Discharge Discharge Diagnosis / Problem: Soft Tissue Mass Buttock Discharge Goals Goal(s): Decrease discomfort, Improve function Activity Recommendations Activity Limitations: as noted below Lifting Limitations: no more than 25 pounds, until after follow-up appointment Exercise/Sports Limitations: until after follow-up appointment Shower/Bathe: tomorrow Driving or Machine Use: resume 1 day after discharge (Do not drive while using narcotic pain medication) Anesthesia . Post Anesthesia Instructions: If you have had General Anesthesia or IV Sedation: * Do not drive today. * Resume driving when surgeon permits. * Do not make important decisions or sign legal documents today. * Call surgeon for: 1. Temperature elevations greater than 101 degrees F. 2. Uncontrollable pain. 3. Excessive bleeding. 4. Persistent nausea and vomiting. 5. Medication intolerance (nausea, vomiting or rash). * For nausea and vomiting use only clear liquids such as: tea, soda, bouillon until nausea subsides, then gradually increase diet as tolerated. * If you have any concerns or questions, call your surgeon's office. If physician is unavailable and it is an emergency, call 911 or go to the nearest emergency room. . Instructions / Follow-Up Instructions / Follow-Up You have steri-strips covering your incision. Please allow these to fall off on their own. You have been prescribed [place] to take as needed for pain relief. You may alternate this with Ibuprofen for better pain relief as well. Please follow-up with Dr. Jordan in 2 weeks. Please contact our office at [phone] to schedule an appointment if you have not done so already. Please contact our office with any questions or concerns. [facility] [address] [place] [address]. Diet Recommendations Recommended Home Diet: no limitations, resume previous diet Procedures Procedures Performed: Right Buttock Soft Tissue masses Excision Pending Studies Studies pending at discharge: yes List of pending studies: Pathology Medical Emergencies . Who to Call and When: Medical Emergencies: If at any time you feel your situation is an emergency, please call 911 immediately. . Non-Emergent Contact Non-Emergency issues call your: Primary Care Provider, Surgeon Call Non-Emergent contact if: you have a fever, temperature is above 101.5, your pain is not controlled, your pain is worsening, wound has increased drainage, wound has increased redness, you have any medication questions . . "Provider Documentation" section prepared by Azar Mckenna. . [place] Drug Monitoring Program Search Results: patient reviewed within database, no issues identified
--- NOTE | 2017-05-18 08:03 | [facility] Operative Report ---
Operative Report Operative Date May 18, 2017. Pre-Operative Diagnosis Right Buttock Soft Tissue Mass Post-Operative Diagnosis Same Procedure(s) Performed Right Buttock Soft Tissue masses Excision Surgeon Dr. Jordan Social Problems Specialist Surgeon(s) Morena Mckenna PA-C Estimated Blood Loss 5 ml Findings firm bilobed mass approx 4 cm. Specimens A. Right Buttock Soft Tissue Mass Anesthesia MAC/marcaine Complication(s) None Disposition Recovery Room / PACU Description of Procedure After informed consent was obtained the patient was taken the operating room and placed in a left lateral decubitus position. IV sedation was administered by anesthesia and titrated to effect. After adequate sedation was obtained the area was sterilely prepped and draped in usual fashion. Marcaine with epinephrine was injected to create a field block around the area of the palpable lesion. A horizontal incision directly over it was made was carried down through the soft tissue using electrocautery. It was relatively deep. It was thought on ultrasound to be 2 lesions however it appeared to me to be a bilobed lesion. It was firm and measured probably close to 4 cm. I used traction countertraction and electrocautery to remove it in one large piece and passed that off to be sent to pathology. Small bleeding points were controlled using electrocautery. Thorough irrigation was performed. The wound was closed in several layers using 2-0 Vicryl for deep layers and 4-0 Monocryl for the skin. Benzoin and Steri-Strips as well as a sterile dressing were applied. The patient was awakened and transferred to recovery in stable condition. My physician's anesthesiology physician assistant was present throughout the entire case. He helped prep and drape. Because the lesion was so deep he held retractors during my dissection. He also helped with wound closure and bandage placement I attest to the content of the Intraoperative Record and any orders documented therein. Any exceptions are noted below.
[2017-05-18 08:17] VITALS: BP 128/77; PULSE 79; O2SAT 99
--- NOTE | 2017-05-18 08:18 | Anesthesia Progress Nt - [facility] ---
Anesthesia Post Op Note Date & Time May 18, 2017 at 08:18 Vital Signs Pain Intensity: 0 Vital Signs Past 12 Hours Date Time Temp Pulse Resp B/P (MAP) Pulse Ox O2 Delivery O2 Flow Rate FiO2 05/18/17 08:04 135/82 (99) 05/18/17 07:55 36.6 91 18 173/69 (103) 96 Room Air 05/18/17 06:42 36.2 78 16 151/84 (106) 98 Room Air Notes Mental Status: alert / awake / arousable, participated in evaluation Pt Amnestic to Procedure: Yes Nausea / Vomiting: adequately controlled Pain: adequately controlled Airway Patency, RR, SpO2: stable & adequate BP & HR: stable & adequate Hydration State: stable & adequate Anesthetic Complications: no major complications apparent
== END | disposition home or self-care (01) ==
LOC: X.SURG 06:17
PROVIDERS: ATTEND Surgery
DX: M79.9 Soft tissue disorder, unspecified (principal); Z79.899 Other long term (current) drug therapy; Z98.890 Other specified postprocedural states; Z88.0 Allergy status to penicillin; Z90.49 Acquired absence of other specified parts of digestive tract; Z90.710 Acquired absence of both cervix and uterus; Z90.722 Acquired absence of ovaries, bilateral; Z82.49 Family history of ischemic heart disease and other diseases of the circulatory system; Z80.3 Family history of malignant neoplasm of breast

== ENCOUNTER 2018-10-31 06:35 | Observation (INO) ==
--- NOTE | 2018-08-27 14:46 | PAT Medication Instructions ---
Medication Instructions Date of Service August 27, 2018 Home Medications exxtajbnlb-uvpcdzbkmkqve-pzzu 1 - 2 cap PO Q6H PRN cholecalciferol (vitamin D3) 2,000 unit PO QAM cyclobenzaprine 10 mg PO TID PRN duloxetine 40 mg PO QAM flurbiprofen 100 mg PO HS levothyroxine [Synthroid] 75 mcg PO QAM ropinirole 0.5 mg PO HS tramadol 50 mg PO Q6H PRN ASK your surgeon for instructions qdlxlpmftk-xonxtcqsrpsoe-eiol 1 - 2 cap PO Q6H PRN flurbiprofen 100 mg PO HS STOP taking 24 hours before surgery ropinirole 0.5 mg PO HS DO NOT take the morning of surgery cholecalciferol (vitamin D3) 2,000 unit PO QAM cyclobenzaprine 10 mg PO TID PRN Take morning of surgery With a small sip of water, OTHERWISE NOTHING TO EAT OR DRINK AFTER MIDNIGHT: duloxetine 40 mg PO QAM levothyroxine [Synthroid] 75 mcg PO QAM tramadol 50 mg PO Q6H PRN (okay to take up to 4 hours prior to surgery if needed) Other Notes If you have any questions please call us at [phone] or [phone] or [phone] or [phone]
--- NOTE | 2018-08-28 08:34 | Anesthesiology Consultation ---
Date of Service August 28, 2018 Assessment & Plan (1) Encounter for pre-operative examination: - Hx glidescope intubation (also, patient with decreased cervical extension s/p ACDF)= C6-C7 ACDF= 08/13/16= Grade view 1, Glidescope#3, ETT 7.5 at [facility] Chart Review Chart Review: Acceptable Risk for Surgery and Patient seen in Pre Admission Testing Teaching & Discussion Pre-Anesthesia Teaching/Discussion Notes: Instructed NPO after midnight before surgery,except medications with 15 cc of water. Medication instructions provided according to the PAT guidelines. History Surgery Operation Date: 09/05/18 08:15 Proposed Procedures p Anterior Revision Cervical Spine Surgery, C4-C5, C5-C6, Removal [place], C4- C5, C5-C6, C6-C7 Plate Fixation with Right Iliac Crest Graft - Ramon Sims DO Height/Weight Height: 5 ft 6 in Weight: 96.6 kg Allergies Allergy/AdvReac Type Severity Reaction Status Date / Time topiramate [From Topamax] Allergy Mild Rash Verified 08/23/18 15:00 Penicillins Allergy Unknown RASH Verified 08/23/18 15:00 Medications Home Medications Medication Instructions Recorded Confirmed Last Taken zeinlelmwp-gdqnykouhkioq-haci 1 - 2 cap PO Q6H PRN 08/23/18 08/23/18 Unknown cholecalciferol (vitamin D3) 2,000 unit PO QAM 08/23/18 08/23/18 Unknown [Vitamin D3] cyclobenzaprine 10 mg PO TID PRN 08/23/18 08/23/18 Unknown duloxetine 40 mg PO QAM 08/23/18 08/23/18 Unknown flurbiprofen 100 mg PO HS 08/23/18 08/23/18 Unknown levothyroxine [Synthroid] 75 mcg PO QAM 08/23/18 08/23/18 Unknown ropinirole 0.5 mg PO HS 08/23/18 08/23/18 Unknown tramadol 50 mg PO Q6H PRN 08/23/18 08/23/18 Unknown Past Medical History Medical History History of difficult intubation C6-C7 ACDF= 08/13/16= Grade view 1, Glidescope#3, ETT 7.5 at [facility] Anxiety Depression Headache ? MIGRAINE VS CERVICALGIA Hypothyroidism Obesity RLS (restless legs syndrome) Past Surgical History Surgical History History of partial hysterectomy Hx of LASIK Hx of bilateral oophorectomy Hx of cholecystectomy Hx of fusion of cervical spine X2 Hx of repair of left rotator cuff Hx of sinus surgery Past Anesthesia History Difficult Airway (C6-C7 ACDF= 08/13/16= Grade view 1, Glidescope#3, ETT 7.5 at [facility]) and No Family Hx of Anesthesia Complications History of PONV Yes Motion Sickness Screening History of Motion Sickness: Yes STOP BANG Total 1 Social History Smoking Status: Never smoker Do You Dip or Chew Tobacco: No Hx Alcohol Use: Yes Alcohol type: wine alcohol intake frequency: holidays/special occasions only Hx Substance Use: No Exercise / Class Metabolic Activity II 4-5 Yardwork/Stairs/Walk up hill Review of Systems Patient reports cervicalgia with LUE radiculopathy/neuropathy. Patient denies chest pain, shortness of breath, dyspnea on exertion, cough, wheezing, palpitations. Physical Exam Vital Signs VITALS BP 133/74 P 85 TEMP 98.5 SP02 96%RA RESP 18 PHYSICAL Decreased cervical extension 2/2 cervicalgia. Full TMJ range of motion. TMD 3 finger breaths Mallampati Score 2 Dentition: intact Lungs: clear throughout to auscultation Cardiac: regular rate and rhythm, no murmurs noted Spine: normal Carotid arteries: negative bruit Extremities: no edema Testing Electrocardiogram Date: 08/28/18 NSR at 70bpm. MARCO A. Chest X-Ray Date: 08/28/18 Findings: + NAD Laboratory Results 08/28/18 08:42 08/28/18 08:42 Blood Type B Positive 08/28/18 08:42 Antibody Screen NEGATIVE 08/28/18 08:42 PT 10.0 Seconds (9.0-12.0) 08/28/18 08:42 INR 1.0 (0.9-1.1) 08/28/18 08:42 APTT 24.5 Seconds (21.0-31.0) 08/28/18 08:42
--- NOTE | 2018-08-28 09:04 | XRay Report ---
XR chest Pre-admission PA/Lat CLINICAL HISTORY: pat preoperative COMPARISON STUDY: No previous studies for comparison. FINDINGS: The bones soft tissues and hemidiaphragms are normal. The cardiomediastinal silhouette is n ormal. The lungs are clear. The pulmonary vasculature is normal. IMPRESSION: Negative chest. The above report was generated using voice recognition software. It may contain grammatical, syntax or spelling errors. Electronically signed by: Chevy Malcolm M.D. 08/28/2018 9:03 AM
[2018-08-28 10:32] LABS: Basophils # (auto) 0.02 K/uL (0-0.2); Basophils % (auto) 0.3 %; Eosinophils # (auto) 0.15 K/uL (0-0.5); Eosinophils % (auto) 2.5 %; Hematocrit (blood only) 41.2 % (37-47); Hemoglobin 13.7 g/dL (12.0-16.0); Immature Granulocytes # (auto) 0.01 K/uL (0.00-0.02); Immature Granulocytes % (auto) 0.2 %; Lymphocytes # (auto) 2.47 K/uL (1.2-3.4); Lymphocytes % (auto) 40.6 %; Mean Corpuscular Hgb Conc 33.3 g/dL (32-36); Mean Platelet Volume 11.3 fL (7.4-10.4); Monocytes % (auto) 9.9 %; Neutrophils # (auto) 2.84 K/uL (1.4-6.5); Neutrophils % (auto) 46.5 %; Platelet Count 249 K/uL (130-400); RDW Coefficient of Variation 14.2 % (11.5-14.5); RDW Standard Deviation 46.1 fL (36.4-46.3); Red Blood Count 4.63 M/uL (4.2-5.4); White Blood Count 6.09 K/uL (4.8-10.8)
[2018-08-28 10:43] LABS: BUN Creatinine Ratio 20.3 (10-20); Calcium 9.6 mg/dl (8.5-10.1); Creatinine Clr Calc Pharmacy 86.6 ml/min; Est GFR (African American) 88.8; Est GFR (Non-African American) 76.6; Potassium 3.9 mmol/L (3.5-5.1)
[2018-08-28 10:45] LABS: Partial Thromboplastin Ratio 0.9; Partial Thromboplastin Time 24.5 Seconds (21.0-31.0)
--- NOTE | 2018-10-30 14:04 | History and Physical Report ---
DATE OF ADMISSION: 10/31/2018 CHIEF COMPLAINT: Neck pain, arm pain, trapezius pain. HISTORY OF PRESENT ILLNESS: The patient is a delightful patient. 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 She is set up for a cervical spine revision surgery. She has failed conservative care. She had remote surgery a few years ago. She has demonstrated nonunion of the cervical spine. PAST MEDICAL HISTORY: Difficult anesthesia problem with thyroid disease, hypertension, COPD, diabetes mellitus. PAST SURGICAL HISTORY: Hysterectomy, neck fusion, cholecystectomy, rotator cuff surgery, lumpectomy. ALLERGIES: PENICILLIN. FAMILY HISTORY: Heart disease, carcinoma. SOCIAL HISTORY: She is . No alcohol, tobacco. Little activity. REVIEW OF SYSTEMS: Denies any fevers, sweats, chills. Ear, nose and throat negative. Denies chest pain, palpitations. Denies asthma, wheezing, shortness of breath. No nausea, vomiting. Admits to sleep issues, numbness, tingling and dizziness. She has joint pain, stiffness and easy bruisability. MEDICATIONS: Vitamin D, Flexeril, Voltaren gel, Cymbalta, Synthroid, Requip and tramadol. OBJECTIVE: GENERAL: She is 5 feet 6 inches, 190. VITAL SIGNS: Blood pressure 130/80, pulse 80, respirations 16. CARDIAC: Normal S1, S2. No S3. LUNGS: Clear to auscultation. No rales, rhonchi or wheezing. ABDOMEN: Soft, nontender. MUSCULOSKELETAL: She has pain with flexion and extension of his cervical spine, pain with rotation, adequate motor strength and sensation. Images demonstrate a nonunion cervical spine. PLAN: Includes revision cervical spine surgery, removal of old plate cervical spine C4-C6 and plate fixation C6-C7 cervical spine with iliac crest bone graft. VELMAD
[~2018-10-31 06:35] MED LIST changes: -ANS100 PO; -ATROPINE SULFATE 0.1 MG/ML 5ML SYR IV PRN; -BUPIVACAINE/EPINEPHRINE 0.5% MPF 1:200,000 30 ML VIAL ONE; -CHOL2000 PO; +CLINDAMYCIN 600 MG/54 ML BAG IV SCH; -CLINDAMYCIN PHOS 150 MG/ML 2 ML VIAL IV SCH; -CYCL10TA6 PO; -DULO-24 PO; -FENTANYL CITRATE INJ 50 MCG/1 ML 2 ML VIAL IV PRN; -FENTANYL CITRATE INJ 50 MCG/1 ML 2 ML VIAL ONE; -HYDR-5688 PO; -HYDROCODONE/ACETAMIN 5/325MG TAB PO PRN; -KETOROLAC TROMETHAMINE 30 MG/ML VIAL IV. PRN; -LACTATED RINGER'S 1000ML 1,000 ML IV SCH; -LEVO75TA5 PO; -LIDOCAINE HCL 2% 2 ML VIAL (20MG/ML) ONE; +LR 15ML/HR IV SCH; -MIDAZOLAM HCL 1 MG/ML 2ML VIAL ONE; -ONDANSETRON INJ 2 MG/ML 2 ML VIAL IV PRN; -ONDANSETRON INJ 2 MG/ML 2 ML VIAL ONE; -PROPOFOL IV EMULSION 10 MG/ML 20 ML VIAL IV ONE; -ROPI0.5T15 PO; +SODIUM CHLORIDE 0.9% 1,000 ML IV SCH; -SODIUM CHLORIDE 0.9% 1000ML 1,000 ML IV SCH; -TRAM-10 PO; -TRAZ-162 PO
[2018-10-31] MEDS ORDERED: PROPOFOL IV EMULSION 10 MG/ML 20 ML VIAL IV ONE (06:53)
[2018-10-31] MEDS ORDERED: LIDOCAINE HCL 2% 2 ML VIAL/AMP(20MG/ML) INFIL ONE (06:53)
[2018-10-31] MEDS ORDERED: ROCURONIUM BROMIDE 10 MG/ML 5 ML VIAL ONE ×2 (06:53→08:40)
[2018-10-31] MEDS ORDERED: fentaNYL citrate 100 MCG/2 ML VIAL ONE ×2 (06:54→08:40)
[2018-10-31] MEDS ORDERED: MIDAZOLAM HCL 1 MG/ML 2ML VIAL ONE (06:54)
[2018-10-31] MEDS ORDERED: THROMBIN FOR SOLN 20000 UNIT KIT ONE ×2 (07:07→07:11)
[2018-10-31] MEDS ORDERED: BACITRACIN INJ 50,000 UNIT VIAL ONE (07:07)
[2018-10-31] MEDS ORDERED: BUPIVACAINE/EPINEPHRINE 0.5% MPF 1:200,000 30 ML VIAL ONE (07:07)
[2018-10-31] MEDS ORDERED: GELATIN SPONGE SZ 100 ONE (07:07)
[2018-10-31] MEDS ORDERED: PHENYLEPHRINE 100MCG/ML 5ML SYR IV PRN (07:10)
[2018-10-31] MEDS ORDERED: ONDANSETRON INJ 2 MG/ML 2 ML VIAL IV PRN ×2 (07:10→12:10)
[2018-10-31] MEDS ORDERED: ATROPINE SULFATE 0.1 MG/ML 10ML SYR IV PRN (07:10)
[2018-10-31] MEDS ORDERED: MEPERIDINE HCL 25 MG/ML CARP IV PRN (07:10)
[2018-10-31] MEDS ORDERED: ePHEDrine sulfate 50 MG/ML AMP IV PRN (07:10)
[2018-10-31] MEDS ORDERED: LABETALOL HCL IV 5 MG/ML 20ML IV PRN (07:10)
[2018-10-31] MEDS ORDERED: SCOPOLAMINE 1.5 MG TDSY ONE (08:01)
--- NOTE | 2018-10-31 08:06 | History & Physical Bridge Note ---
Date of Service October 31, 2018 History & Physical Bridge Note I have examined the patient, reviewed the History & Physical and in the interval since the performance of the History & Physical I have noted the following changes of clinical significance: no changes noted
[2018-10-31] MEDS ORDERED: DEXAMETHASONE SOD INJ 4 MG/ML VIAL ONE (08:21)
[2018-10-31] MEDS ORDERED: ONDANSETRON INJ 2 MG/ML 2 ML VIAL ONE (08:21)
[2018-10-31] MEDS ORDERED: GLYCOPYRROLATE 0.2 MG/ML VIAL ONE (08:38)
[2018-10-31] MEDS ORDERED: NEOSTIGMINE METHYLSULFATE 5 MG/5 ML SYR ONE (08:38)
--- NOTE | 2018-10-31 10:36 | Post Operative Brief Note ---
Immediate Post Op Note v1 Date of Surgery October 31, 2018 Pre & Post Diagnosis Operation Date: 10/31/18 08:15 Pre-Op Diagnosis: Non-union Cervical Spine Post-Op Diagnosis: Non-union Cervical Spine Procedure Operation Date: 10/31/18 08:15 Actual Procedures p Anterior Revision Cervical Spine Surgery; C4-C5, C5-C6 Removal Old Spacer, interbody cage, and Plate. C6-C7 Anterior Plate Fixation with Right Iliac Crest Bone Graft, application of DBM(Not Applicable) - Ramon Sims DO Surgeon Ramon Sims DO Beauty Artist [email or web address] Estimated Blood Loss 20 Findings Consistent with Post-Op Diagnosis Drains Cota Catheter
[2018-10-31] MEDS: fentaNYL citrate 100 MCG/2 ML VIAL IV PRN ×4 (10:54→11:09)
--- NOTE | 2018-10-31 10:58 | Operative Report ---
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 POSTOPERATIVE DIAGNOSIS: Same. PROCEDURE: 1. Removal of painful implants C4 to C6 cervical spine, anterior cervical plating. 2. Removal of interbody cage at C6-7. 3. Anterior cervical discectomy, complete discectomy at C6-7, spinal cord decompression at C6-7. 4. Right iliac crest structural autograft. 5. Anterior plating from C6 to C7. SURGEON: Ramon Sims DO BUSINESS SOLUTION ANALYST: Azar Perez PA-C. COMPLICATIONS: Zero. BLOOD LOSS: Less than 20 mL. DESCRIPTION OF PROCEDURE: Prior to the patient coming to the operating room, she was appropriately marked in the holding area. She was brought back to the operating room. She was prepped, draped sterile. Images reviewed in detail. Formal time-out was provided. We made a skin incision, fascial incision on the cervical spine at C6-7. I made an ample incision. I was able to get superior up into the C4 vertebrae. I was able to easily remove the anterior plating of the cervical spine construct. We then went down the C6-7 level cervical spine. I was able to use various techniques including a maribell to maribell down and remove the remaining implant which was a PEEK interbody spacer at C6-7 cervical spine. I went further, took out disc material. The interspace had not been properly decompressed in the past through formal anterior cervical discectomy. I was back to the posterior longitudinal ligament. I was back on the spinal cord. I did foraminotomies at both levels. I measured this interspace to be approximately 8 mm in height, 15 mm in depth. We then went to the right iliac crest, made a skin incision, fascial incision, harvested a structural autograft to fit into the vacated discectomy site, that the fit was nearly anatomic. I was pleased with the radiographs. She was an obese individual, so it was hard to get good visualization. I selected a 20 mm plate to put over the construct, 2 screws superior to inferior, locked down securely. We irrigated thoroughly, closed the cervical spine over a drain, closed the iliac crest with 1 Vicryl, 2-0 and 3-0 nylon. Sterile dressings applied. The patient extubated to PACU stable. No apparent complications. I attest to the content of the Intraoperative Record and any orders documented therein. Any exception s are noted below.
[2018-10-31] MEDS: HYDROmorphone INJ 1 MG/ML SYRINGE IV PRN ×2 (11:24→11:29)
--- NOTE | 2018-10-31 11:31 | Anesthesiology Progress Note ---
Date of Service October 31, 2018 Anesthesia Post Procedure Vital Signs Vital Signs: Temp Pulse Pulse Resp BP Pulse Ox 10/31/18 11:20 89 21 163/78 H 98 10/31/18 11:10 90 14 152/74 H 97 10/31/18 11:00 93 H 14 167/77 H 95 10/31/18 10:50 86 19 164/83 H 100 10/31/18 10:40 87 12 158/78 H 100 10/31/18 10:33 36.3 C L 94 H 12 179/81 H 95 10/31/18 06:58 37.2 C 72 18 149/84 H 97 Pain Intensity Neck: Pain Intensity: 3 Transfer of Care Handoff Completed per policy Notes Mental Status: alert / awake / arousable Patient Amnestic to Procedure: Yes Nausea / Vomiting: adequately controlled Pain: adequately controlled Airway Patency, RR, SpO2: stable & adequate BP & HR: stable & adequate Hydration State: stable & adequate Anesthetic Complications: no major complications apparent and Pt Satisfied with anesthetic care Notes: The patient is awake and comfortable. She does not have any swelling of her neck.
--- NOTE | 2018-10-31 11:50 | Fluoroscopy Report ---
INTRAOPERATIVE RADIOGRAPHS CLINICAL HISTORY: Anterior cervical spine revision at C4-C5. Fluoroscopy time: 20 seconds. FINDINGS: 3 spot fluoroscopic views of the cervical spine are obtained. Correlation is made with [facility] dated 09/05/2018. An endotracheal tube is in place. There has been discectomy at C4-C5, with ex tensive postoperative change in the lower cervical region. Anterior fusion hardware appears to have b een removed from previous. IMPRESSION: Intraoperative images from cervical spine fusion revision. See operative report for detai led findings. Electronically signed by: Miguel Evans M.D. 10/31/2018 11:49 AM
--- NOTE | 2018-10-31 11:50 | Fluoroscopy Report ---
INTRAOPERATIVE RADIOGRAPHS CLINICAL HISTORY: Anterior cervical spine revision at C4-C5. Fluoroscopy time: 20 seconds. FINDINGS: 3 spot fluoroscopic views of the cervical spine are obtained. Correlation is made with [facility] [place] dated 09/05/2018. An endotracheal tube is in place. There has been discectomy at C4-C5, with ex tensive postoperative change in the lower cervical region. Anterior fusion hardware appears to have b een removed from previous. IMPRESSION: Intraoperative images from cervical spine fusion revision. See operative report for detai led findings. Electronically signed by: Miguel Evans M.D. 10/31/2018 11:49 AM
[2018-10-31] MEDS ORDERED: ACETAMINOPHEN 1,000 MG/100 ML VIAL IV PRN (12:10)
[2018-10-31] MEDS ORDERED: LORazepam 0.5 MG/1 ML VIAL IV PRN (12:10)
[2018-10-31] MEDS ORDERED: DEXAMETHASONE SOD PHOSPHATE 8 MG in SYRINGE 0 ML IV PRN (12:10)
[2018-10-31] MEDS ORDERED: NALOXONE HCL 0.4 MG/1 ML VIAL/CARP IV PRN (12:10)
[2018-10-31] MEDS ORDERED: RACEPINEPHRINE 2.25% NEBU SOLN 0.5 ML VIAL INH PRN (12:10)
[2018-10-31] MEDS ORDERED: MAGNESIUM HYDROXIDE SUSP 30 ML UDC PO PRN (12:10)
[2018-10-31] MEDS: OXYCODONE HCL IR 5 MG TAB (IMMEDIATE RELEASE) PO PRN ×2 (13:57→17:52)
[2018-10-31] MEDS: HYDROmorphone INJ 0.5 MG/0.5 ML SYR IV PRN ×2 (15:12→20:55)
[2018-10-31] MEDS: CLINDAMYCIN 600 MG in DEXTROSE 5% 50 ML IV SCH ×2 (16:32→23:36)
[2018-10-31] MEDS: DOCUSATE SODIUM 100 MG CAP PO SCH (20:56)
[2018-10-31] MEDS: SODIUM CHLORIDE 0.9% 1000ML 1,000 ML IV SCH (20:56)
[2018-10-31] MEDS ORDERED: ROPINIROLE HCL 0.25 MG TABLET PO SCH (21:00)
[2018-11-01] MEDS: OXYCODONE HCL IR 5 MG TAB (IMMEDIATE RELEASE) PO PRN ×3 (01:43→12:52)
[2018-11-01] MEDS: SODIUM CHLORIDE 0.9% 1000ML 1,000 ML IV SCH (05:47)
[2018-11-01] MEDS ORDERED: LR 15ML/HR IV SCH (06:00)
[2018-11-01] MEDS ORDERED: LEVOTHYROXINE SODIUM 75 MCG TABLET PO SCH (06:30)
[2018-11-01] MEDS: CLINDAMYCIN 600 MG in DEXTROSE 5% 50 ML IV SCH (07:33)
--- NOTE | 2018-11-01 07:47 | Anesthesiology Progress Note ---
Date of Service November 01, 2018 Anesthesia Post Procedure Vital Signs Vital Signs: Temp Pulse Pulse Resp BP BP Pulse Ox 11/01/18 07:27 37.2 C 79 16 126/74 94 11/01/18 07:25 86 14 93 11/01/18 05:15 37 C 80 16 135/78 94 11/01/18 03:37 87 18 99 11/01/18 03:10 36.8 C 90 16 136/77 98 11/01/18 01:05 36.6 C 85 16 135/76 98 10/31/18 23:20 93 H 16 99 10/31/18 23:02 36.8 C 93 H 18 131/74 97 10/31/18 21:10 36.7 C 99 H 16 134/75 97 10/31/18 19:05 36.7 C 102 H 18 136/74 97 10/31/18 17:03 36.6 C 91 H 20 131/75 93 10/31/18 16:00 104 H 18 96 10/31/18 15:00 36.8 C 96 H 16 128/79 97 10/31/18 13:40 36.4 C L 100 H 16 129/75 95 10/31/18 13:09 100 H 18 141/77 H 96 10/31/18 12:56 102 H 16 98 10/31/18 12:31 98 H 18 140/74 96 10/31/18 12:05 36.4 C L 92 H 16 151/76 H 96 10/31/18 11:41 36.8 C 92 H 14 147/77 H 95 10/31/18 11:30 36.8 C 89 14 149/79 H 98 10/31/18 11:20 89 21 163/78 H 98 10/31/18 11:10 90 14 152/74 H 97 10/31/18 11:00 93 H 14 167/77 H 95 10/31/18 10:50 86 19 164/83 H 100 10/31/18 10:40 87 12 158/78 H 100 10/31/18 10:33 36.3 C L 94 H 12 179/81 H 95 Pain Intensity Neck: Pain Intensity: 6 Notes Mental Status: alert / awake / arousable and participated in evaluation Nausea / Vomiting: adequately controlled Pain: adequately controlled Airway Patency, RR, SpO2: stable & adequate BP & HR: stable & adequate Hydration State: stable & adequate
[2018-11-01] MEDS: DOCUSATE SODIUM 100 MG CAP PO SCH (08:13)
--- NOTE | 2018-11-01 08:41 | Discharge Summary ---
Patito was admitted for reconstructive spine surgery yesterday, at approximately 11 a.m. She is discharged home this morning. She is improved, stable condition. Taking p.o. No chest pain, shortness of breath. She had an uneventful course for her major surgery. Discharged home in improved, stable. Followup examination in 12 days. She has a prescription on her chart. Instructions provided.
[2018-11-01] MEDS ORDERED: DULOXETINE HCL 20 MG CAP PO SCH (09:00)
[2018-11-01] MEDS ORDERED: CHOLECALCIFEROL 1,000 UNITS TAB PO SCH (09:00)
[2018-11-02] MEDS ORDERED: BISACODYL 5 MG TABEC PO PRN (10:39)
== END 2018-11-01 13:05 | disposition home or self-care (01) ==
LOC: ASU 06:35 → 3E 06:35

== ENCOUNTER 2024-12-28 11:07 | Observation (INO) ==
--- NOTE | 2024-12-28 12:02 | Emergency Department Note ---
Impression & Plan Sciatica of left side ED Provider Note NAME: GENEVA HERNÁNDEZ AGE: 64 SEX: Female INFORMANT: Patient ED PROVIDER(S): Ramon Workman MD CHIEF COMPLAINT: Left leg pain PLAN: Disposition: Admitted Outpatient prescription management: none Referral: None MEDICAL DECISION MAKING: Patient presented with left leg pain. Discussed conservative measures initially. Physical examination seem consistent with sciatica. She was treated with IM morphine and oral Zofran. Patient was monitored. Unfortunately pain did not significantly improve. Discussed options and IV was established. Patient was treated with IV Dilaudid. He was also given IV Toradol. Despite multiple doses pain was still significant. Patient was requiring supplemental oxygen due to mild respiratory depression from the narcotics. Discussed treatment options with the patient. Given the intractable nature of the pain she cannot safely go home. Discussed admission for MR imaging and further workup. Patient in agreement. MR imaging ordered. Consultation was made with the [facility]. Patient was evaluated in the ER and admitted for further management. Care/management discussed with: dental manager Level of care consideration(s): After review of the information above and other included data, I feel the patient requires escalation of care to admission Triage Nursing notes: reviewed and agree them. Vital Signs: reviewed and remarkable for no significant abnormalities Additional History obtained from: none Chronic Medical/Social Conditions affecting care: Cervical disc disease Prior/ Outside/ External records reviewed: none Differential Diagnosis: Musculoskeletal, disc herniation, fracture, metastatic disease, cord compression, discitis, sciatica, cauda equina, infection, aortic disease, renal colic, gastrointestinal, as well as other pathologies. Diagnostics, independently interpreted by me: ECG: none Cardiac Monitoring: Cardiac monitoring ordered by me: The patient was placed on continuous cardiac monitoring and observed. It revealed a normal sinus rhythm at 71 beats per minute without ectopy or evidence of dysrhythmia. Medical decision rules: none Imaging studies: I refer you to the EMR for further details. HPI: 64 year old Female arrives for evaluation of left leg pain. This started about 3 weeks ago and is worsening. Pain is now radiating from the low back down through the buttock and the posterior aspect of the left thigh to the level of the knee.. The patient also notes the following associated symptoms, some mild numbness at times. Patient was seen by orthospine for her ongoing cervical issues. She was given an injection in the posterior left hip area which she states helped for about a day. Patient has been trying IcyHot.. The patient has was prescribed prednisone for relieving factors. Current pain is rated as 10/10. Pt denies trauma, LOC, headache, neck pain, fevers, chills, malaise, night sweats, weight loss, history of malignancy, chest pain, breathing difficulties, abdominal pain, saddle parasthesias, bowel or bladder dysfunction, weakness, urinary symptoms, or other complaints. PAST MEDICAL HISTORY: See Below, cervical disc disease PAST SURGICAL HISTORY: See Below, cervical fusion SOCIAL HISTORY: See Below, HOME MEDICATIONS: See Below ALLERGIES: See Below VITALS: See Below PHYSICAL EXAMINATION: GENERAL: Awake, alert, uncomfortable-appearing, in no distress HENT: Normocephalic, atraumatic. Oropharynx unremarkable. EYES: Normal conjunctiva. Sclera non-icteric. NECK: Inspection normal. Non-tender. Supple. No nuchal rigidity. FROM. No masses. RESPIRATORY: Clear to auscultation. No wheezes. No rales. Normal respiratory effort. CARDIAC: Normal rate. Normal rhythm. No murmurs. No rubs. Extremities warm and well perfused. Pulses equal. No JVD. GI: Soft, non-distended. No tenderness to palpation. No rebound or guarding. No masses. RECTAL: Deferred. MUSCULOSKELETAL: Atraumatic. Chest examination reveals no tenderness. The back is symmetrical on inspection without obvious abnormality. There is no CVA tenderness to palpation. No joint edema. Moderate tenderness in the left sciatic notch. LOWER EXTREMITIES: Calves are equal size bilaterally and non-tender. No edema. No discoloration. NEURO: Normal sensorium. No sensory or motor deficits noted. No saddle anesthesia. Symmetric lower extremity reflexes. 5 out of 5 strength bilaterally. Normal EHL function. Positive SLR on the left. SKIN: No rash or jaundice noted. PROCEDURES: none CRITICAL CARE: none OBSERVATION NOTE: none Past Med/Surg History Problem List (Updated 12/28/24 @ 14:59 by Pauline Sampson MD) Hypoxia Sciatica of left side (Acute) Lumbar paraspinal muscle spasm Left lumbar radiculitis Paresthesia of left upper extremity Pain of left upper extremity Anxiety Myofascial pain Cervical spinal stenosis due to adjacent segment disease after fusion procedure Cervical radiculopathy Cervico-occipital neuralgia Cervicogenic headache Migraine Insomnia Obesity Dyslipidemia Prediabetes History of cervical spinal surgery (2018) ACDF C4-7 2019 Hypothyroidism Vitamin D deficiency Cervical disc disease Fibromyalgia GERD (gastroesophageal reflux disease) Restless legs syndrome Cervical facet joint syndrome Medical History Iliotibial band syndrome of left side Greater trochanteric bursitis of left hip Spasm of left trapezius muscle History of COVID-19 beginning 02/2022, home test, not hosp; congestion, runny nose, sore throat, fatigue>resolved Nausea and vomiting after administration of anesthetic agent Obesity Depression Surgical History Hx of prior ablation treatment neck, 2023 Hx of right breast biopsy benign History of esophagogastroduodenoscopy (EGD) Hx of colonoscopy S/P cervical spinal fusion (08/2016) ACDF C6-C7 H/O bilateral oophorectomy (1996) History of temporal artery biopsy b/l, negative History of difficult intubation C6-C7 ACDF= 08/13/16= Grade view 1, Glidescope#3, ETT 7.5 at [facility] Hx of repair of left rotator cuff Hx of cholecystectomy History of partial hysterectomy (1995) Hx of fusion of cervical spine (2010) C3-C5 Hx of sinus surgery Hx of LASIK Family History Aunt Breast cancer Maternal Aunt Grandmother (Paternal) Myocardial infarction Coronary heart disease Grandfather (Maternal) Coronary heart disease Grandfather (Maternal) Myocardial infarction Coronary heart disease Father Lung cancer Smoker Uncle Brain cancer Mother Hypertension B12 deficiency Osteoarthritis Grandmother Breast cancer Maternal Great Grandmother Grandmother (Paternal) Coronary heart disease Sister Hypertension Brother Hypertension Coronary heart disease Hx of CABG Sister Hypertension Rheumatoid arthritis Brother Hypertension Denies family history of Ovarian cancer Prostate cancer Colorectal cancer Social History Smoking Status: Never smoker Second Hand Exposure: Yes (father smoked); Do You Dip or Chew Tobacco: No; Hx Alcohol Use: Yes Alcohol type: wine Alcohol Intake Frequency: Monthly or Less Hx Substance Use: No Preferred Language: Khmer Communication Ability: Effective Visual Impairment: No Limitations Hearing Ability: Normal 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 Required: No Beliefs That Will Affect Care: None marital status: Current Living Situation: Spouse current occupational status: retired How many Children do You have: 2 Feels Safe at Home: Yes Childhood Exposure to Second-Hand Smoke: Yes Diet: regular Diet Comment: Regular caffeine: Yes (Coffee x 2 per day.) during the past year weight has: remained stable Dental Care, Regularly: Yes Physical Activity Frequency: 3-4 Times per Week Seatbelt Use: always Sunscreen Use: Yes Assistive Devices: Glasses Allergies Allergies Allergy/AdvReac Type Severity Reaction Status Date / Time Penicillins Allergy Mild RASH Verified 12/28/24 14:44 topiramate [From Topamax] Allergy Mild Rash Verified 12/28/24 14:44 Home Meds Home Medications Medication Instructions Recorded Confirmed cetirizine 10 mg tablet (Zyrtec) 10 mg PO DAILY Allergy Symptoms 08/19/20 12/28/24 duloxetine 30 mg capsule,delayed 30 mg PO HS 12/28/24 12/28/24 release methylprednisolone 4 mg tablet See Rx Instructions .Route .COMPLEX 12/28/24 12/28/24 zolmitriptan 5 mg tablet (Zomig) 5 mg PO DAILY PRN Headache 12/28/24 12/28/24 Previous Rx's Medication Instructions Recorded duloxetine 60 mg capsule,delayed 60 mg PO QAM #90 caps 06/05/24 release tizanidine 4 mg capsule 4 - 8 mg (1 - 2 x 4 mg) PO BID PRN 06/05/24 muscle spasticity #60 caps omeprazole 40 mg capsule,delayed 40 mg PO QAM #90 caps 07/04/24 release ropinirole 0.5 mg tablet 0.5 mg PO HS #90 tabs 07/04/24 metformin 500 mg tablet,extended 500 mg PO BID #180 tabs 10/07/24 release 24 hr trazodone 100 mg tablet 100 mg PO HS #90 tabs 10/07/24 gabapentin 300 mg capsule 300 mg PO TID #270 caps 11/05/24 levothyroxine 88 mcg tablet 88 mcg PO QAM #90 tabs 12/08/24 Results & Data (ED) Vital Signs Vital Signs - 24 hr 12/28/24 11:14 12/28/24 13:08 12/28/24 13:30 Temperature 36.2 C L Temperature Source Temporal Artery Scan Pulse Rate 99 H Pulse Rate [Apical] 72 Respiratory Rate 20 20 Respiratory Effort / Characteristics Non-Labored Spontaneous Respiratory Depth Normal Respiratory Pattern Regular Blood Pressure 163/83 H Blood Pressure [Left Arm] 152/89 H Blood Pressure Mean 109 Blood Pressure Mean [Left Arm] 110 Blood Pressure Position Lying Pulse Oximetry 97 89 L 97 Oxygen Delivery Method Room Air Room Air Nasal Cannula Oxygen Flow Rate 2 Sepsis Recent Fever Within 48 Hours No Sepsis New/Unexplained Change in Mental Status No Sepsis Action Taken by Nursing No Action Required 12/28/24 14:03 Temperature Temperature Source Pulse Rate 70 Pulse Rate [Apical] Respiratory Rate Respiratory Effort / Characteristics Respiratory Depth Respiratory Pattern Blood Pressure Blood Pressure [Left Arm] Blood Pressure Mean Blood Pressure Mean [Left Arm] Blood Pressure Position Pulse Oximetry Oxygen Delivery Method Oxygen Flow Rate Sepsis Recent Fever Within 48 Hours Sepsis New/Unexplained Change in Mental Status Sepsis Action Taken by Nursing Laboratory Data 12/28/24 12:59 12/28/24 12:59 Lab Results 12/28/24 Range/Units 12:59 WBC 12.26 H (4.8-10.8) K/ul RBC 4.58 (4.20-5.40) M/uL Hgb 13.3 (12.0-16.0) g/dl Hct 39.3 (37.0-47.0) % MCV 85.8 (80.0-100.0) fL MCH 29.0 (25.0-34.0) pg MCHC 33.8 (32.0-36.0) g/dL RDW Std Deviation 42.1 (36.4-46.3) fL RDW Coeff of Laurie 13.5 (11.5-14.5) % Plt Count 320 (130-400) K/uL MPV 10.7 (9.4-12.4) fL Immature Gran % (Auto) 0.3 % Neut % (Auto) 53.8 % Lymph % (Auto) 36.2 % Wheeler % (Auto) 8.3 % Eos % (Auto) 1.1 % Baso % (Auto) 0.3 % Neut # (Auto) 6.59 H (1.40-6.50) K/uL Lymph # (Auto) 4.44 H (1.20-3.40) K/uL Wheeler # (Auto) 1.02 H (0.11-0.59) K/uL Eos # (Auto) 0.13 (0.00-0.50) K/uL Baso # (Auto) 0.04 (0.00-0.20) K/uL Immature Gran # (Auto) 0.04 (0.01-0.20) K/uL Sodium 135 L (136-145) mmol/L Potassium 3.8 (3.5-5.1) mmol/L Chloride 99 (98-107) mmol/L Carbon Dioxide 29 (21-32) mmol/L Anion Gap 7 (3-11) BUN 14 (6-23) mg/dl Creatinine 0.83 (0.6-1.2) mg/dl Est Cr Clr Drug Dosing 79.3 ml/min eGFR 79.66 BUN/Creatinine Ratio 16.9 (10-20) Glucose 89 (70-99(Fasting)) mg/dl Calcium 9.3 (8.6-10.3) mg/dl Total Bilirubin 0.5 (0.2-1.0) mg/dl AST 17 (13-39) U/L ALT 17 (7-52) U/L Alkaline Phosphatase 79 (34-104) U/L Total Protein 6.9 (6.0-8.3) gm/dl Albumin 3.8 (3.4-5.0) gm/dl Globulin 3.1 (2.5-4.0) gm/dl Albumin/Globulin Ratio 1.2 (0.9-2) Administered Medications Acetaminophen (Acetaminophen 325 Mg Tab) 650 mg PO Q6H [facility] Stop: 01/27/25 17:29 Last Admin: 12/28/24 18:19 Dose: 650 mg Documented By: BRITTANY Hydromorphone HCl (Hydromorphone Inj 0.5 Mg/0.5 Ml Syr) 0.5 mg IV Q3H PRN PRN Reason: Pain (6,7,8,9,10) Stop: 01/11/25 17:29 Last Admin: 12/28/24 18:28 Dose: 0.5 mg Documented By: BRITTANY Dexamethasone 8 mg/ Syringe 2 mls @ 1 mls/min IV Q8H [facility] Stop: 12/30/24 10:16 Last Admin: 12/28/24 19:15 Dose: 1 mls/min Documented By: YOLANDA Insulin Aspart (Insulin Aspart Per Unit Charge) 0 units SC ACHS [facility] Stop: 01/27/25 17:29 Last Admin: 12/28/24 18:25 Dose: 3 units Documented By: BRITTANY Co-signed By: HO Ondansetron HCl (Ondansetron Inj 2 Mg/Ml 2 Ml Vial) 4 mg IV Q6H PRN PRN Reason: Nausea Stop: 01/27/25 17:29 Last Admin: 12/28/24 18:20 Dose: 4 mg Documented By: BRITTANY Tizanidine HCl (Tizanidine Hcl 4 Mg Tablet) 4 mg PO Q6H PRN PRN Reason: muscle spasticity Stop: 01/27/25 17:29 Last Admin: 12/28/24 19:20 Dose: 4 mg Documented By: YOLANDA Discontinued Medications Hydromorphone HCl (Hydromorphone Inj 0.5 Mg/0.5 Ml Syr) 0.5 mg IV Q15M PRN PRN Reason: Pain Stop: 01/11/25 12:55 Last Admin: 12/28/24 14:17 Dose: 0.5 mg Documented By: Admin: 12/28/24 13:02 Dose: 0.5 mg Documented By: JACINTA Ketorolac Tromethamine (Ketorolac Tromethamine 15 Mg/Ml Vial) 10 mg IV ONE STA Stop: 12/28/24 12:57 Last Admin: 12/28/24 13:02 Dose: 10 mg Documented By: JACINTA Morphine Sulfate (Morphine Sulfate 10 Mg/Ml Carp/Vial) 8 mg IM NOW STA Stop: 12/28/24 11:55 Last Admin: 12/28/24 12:04 Dose: 8 mg Documented By: JACINTA Ondansetron HCl (Ondansetron Home Pack 4mg Od Tab) 1 each PO NOW ONE Stop: 12/28/24 11:55 Last Admin: 12/28/24 17:50 Dose: Not Given Documented By: BRITTANY Ondansetron HCl (Ondansetron 4 Mg Od Tab) Confirm Administered Dose 4 mg .ROUTE .STK-MED ONE Stop: 12/28/24 12:00 Last Admin: 12/28/24 12:03 Dose: Not Given Documented By: JACINTA Ondansetron HCl (Ondansetron 4 Mg Od Tab) 4 mg PO NOW STA Stop: 12/28/24 12:01 Last Admin: 12/28/24 12:05 Dose: 4 mg Documented By: ARS Imaging Data Radiologist's Impression: Lumbar Spine MRI 12/28/24 14:18 EXAM: MR lumbar spine wo con CLINICAL HISTORY: Intractable left lumbar radiculopathy TECHNIQUE: MRI of the lumbar spine was performed without the administration of intravenous contrast. Sequences obtained include sagittal T1-weighted, T2-weighted, STIR (Short Tau Inversion Recovery), and axial T2-weighted sequences. COMPARISON: - 12/23/2024 FINDINGS: Vertebral Alignment: Straightening of the lumbar curvature, denoting muscle spasm. Minimal lumbar scoliosis, convex to the left side. Mild forward slippage of L4 over L5 secondary to bilateral L4-5 facet arthropathy. Degenerative changes of the lumbar spine with marginal bone hypertrophy of the vertebral endplates and reduced disc hydration denoting dessication. Normal alignment of the lumbar spine without evidence of fracture or malalignment. Marrow signals are normal. Vertebral Bodies and Intervertebral Discs: Normal vertebral body height, no fracture identified. No lytic or sclerotic lesions. Normal bone marrow signal intensity. [id number] analysis: T12-L1: There is no significant disc pathology. No spinal canal stenosis. No neural foraminal stenosis.No ligamentum flavum hypertrophy and facet joint arthropathy. L1-L2: There is no significant disc pathology. No spinal canal stenosis. No neural foraminal stenosis.No ligamentum flavum hypertrophy and facet joint arthropathy. L2-L3: There is a mild disc bulge, measuring 2.7mm with left foraminal extensions, causing mild bilateral foraminal narrowing more on the left side. No spinal canal stenosis. No ligamentum flavum hypertrophy and facet joint arthropathy. L3-L4: There is a disc bulge, measuring 3.4mm, with 5.8 mm left foraminal protursion along with mild bilateral facet arthropathy, causing moderate left and mild right neural foraminal narrowing. No spinal canal stenosis. No ligamentum flavum hypertrophy. L4-L5: There is a posterior disc bulge, measuring 4.8mm, with a left foraminal protrusion, along with mild buckling of ligamentum flavum, causing mild spinal canal narrowing and bilateral facet arthropathy with a left small facet synovial cyst, causing right mild and moderate left foraminal stenosis. L5-S1: There is a small central disc protrusion, measuring 2.5mm, along with bilateral facet arthropathy, hypertrophic on the left side, causing bilateral mild foraminal narrowing.No spinal canal stenosis. No ligamentum flavum hypertrophy . Spinal Cord and Nerve Roots: Conus medullaris terminates at the L1 level without abnormality. Nerve roots appear unremarkable bilaterally. The lower thoracic spinal cord, conus medullaris, and cauda equina nerve roots are unremarkable. Soft Tissues: Paraspinal soft tissues appear normal without evidence of abnormal signal intensity or mass lesions. Lumbar deep subcutaneous fluid signal. IMPRESSION: 1. Straightening of the lumbar curvature, denoting muscle spasm. 2. Minimal lumbar scoliosis, convex to the left side. 3. 1st degree degenerative spondylolithesis of L4 over L5 vertebrae. 4. Degenerative changes with multiple disc bulges and multilevel facet arthropathy, causing varying degrees of bilateral mild to severe foraminal stenosis, most evident at the L4-5 disc level, resulting in moderate left foraminal stenosis at this level and compression of the left exiting nerve root. 5. The previous x ray was reviewed. Electronically signed by Jason Reyes 12-28-2024 4:30 PM Discharge Plan Visit Data Chief Complaint: Hip Pain Stated Complaint: HIP PAIN, NUMBNESS IN LEFT LEG AND FOOT ED Provider: Ramon Workman Discharge Problem: Sciatica of left side Patient Disposition: Admitted As Inpatient Condition: Good Discharge Instructions Interventions: ED Discharge Assessment Last Done: 12/28/24 17:10
[2024-12-28] MEDS: ONDANSETRON 4 MG OD TAB ONE (12:03)
[2024-12-28] MEDS: MoRPHine SULFATE 10 MG/ML CARP/VIAL IM STA (12:04)
[2024-12-28] MEDS: ONDANSETRON 4 MG OD TAB PO STA (12:05)
[2024-12-28] MEDS: KETOROLAC TROMETHAMINE 15 MG/ML VIAL IV STA (13:02)
[2024-12-28] MEDS: HYDROmorphone INJ 0.5 MG/0.5 ML SYR IV PRN ×3 (13:02→21:36)
[2024-12-28 14:31] LABS: Hematocrit (blood only) 39.3 % (37.0-47.0); Hemoglobin 13.3 g/dl (12.0-16.0); Immature Granulocytes # (auto) 0.04 K/uL (0.01-0.20); Immature Granulocytes % (auto) 0.3 %; Mean Corpuscular Hemoglobin 29.0 pg (25.0-34.0); Mean Corpuscular Volume 85.8 fL (80.0-100.0); Platelet Count 320 K/uL (130-400); RDW Standard Deviation 42.1 fL (36.4-46.3); Red Blood Count 4.58 M/uL (4.20-5.40); White Blood Count 12.26 K/ul (4.8-10.8)
[2024-12-28 14:38] LABS: Alanine Aminotransferase 17.0 U/L (7-52); Albumin Globulin Ratio 1.2 (0.9-2); Alkaline Phosphatase 79.0 U/L (34-104); Anion Gap 7.0 (3-11); Bilirubin,Total 0.5 mg/dl (0.2-1.0); Blood Urea Nitrogen 14.0 mg/dl (6-23); Calcium 9.3 mg/dl (8.6-10.3); Carbon Dioxide 29.0 mmol/L (21-32); Chloride 99.0 mmol/L (98-107); Creatinine Clr Calc Pharmacy 79.3 ml/min; Globulin 3.1 gm/dl (2.5-4.0); Glucose 89.0 mg/dl (70-99(Fasting)); Potassium 3.8 mmol/L (3.5-5.1); Sodium 135.0 mmol/L (136-145); Total Protein 6.9 gm/dl (6.0-8.3)
--- NOTE | 2024-12-28 15:05 | History & Physical Report ---
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 Alvarado's office and had steroid injection, medrol dosepack, also on gabapentin and muscle relaxers -Not improved despite several doses of IV opioids in ED -MRI Lspine ordered - pending. No red flags other than intractable pain, leukocytosis is probably steroid effect -continue gabapentin but increase to 600 mg tid -continue duloxetine -heat/ice -IV steroids -got toradol in ED -scheduled APAP -PRN tizanidine -PRN oxycodone and IV hydromorphone -discuss with Dr. Alvarado -PT/OT when able # hypoxia -result of hypoventilation due to opioids given in ED -supp O2, mobility, IS # prediabetes - expect steroid induced hyperglycemia -diabetic diet -start with premeal/correctional short acting insulin and hold metformin bowel regimen DVT ppx - enoxaparin History of Present Illness Chief Complaint: L leg pain Primary Care Provider: Angeline Hills DO 64 year old Female arrives for evaluation of left leg pain. This started about 3 weeks ago and is worsening. Pain is now radiating from the low back down through the buttock and the posterior aspect of the left thigh to the level of the knee.. The patient also notes the following associated symptoms, some mild numbness at times. Patient was seen by orthospine for her ongoing cervical issues. She was given an injection in the posterior left hip area which she states helped for about a day. Patient has been trying IcyHot.. The patient has was prescribed prednisone for relieving factors. Current pain is rated as 10/10. Pt denies trauma, LOC, headache, neck pain, fevers, chills, malaise, night sweats, weight loss, history of malignancy, chest pain, breathing difficulties, abdominal pain, saddle parasthesias, bowel or bladder dysfunction, weakness, urinary symptoms, or other complaints. Allergies Allergy/AdvReac Type Severity Reaction Status Date / Time Penicillins Allergy Mild RASH Verified 12/28/24 14:44 topiramate [From Topamax] Allergy Mild Rash Verified 12/28/24 14:44 Home Medications Medication Instructions Recorded Confirmed Type cetirizine 10 mg tablet (Zyrtec) 10 mg PO DAILY Allergy Symptoms 08/19/20 12/28/24 History duloxetine 60 mg capsule,delayed 60 mg PO QAM #90 caps 06/05/24 12/28/24 Rx release tizanidine 4 mg capsule 4 - 8 mg (1 - 2 x 4 mg) PO BID PRN 06/05/24 12/28/24 Rx muscle spasticity #60 caps omeprazole 40 mg capsule,delayed 40 mg PO QAM #90 caps 07/04/24 12/28/24 Rx release ropinirole 0.5 mg tablet 0.5 mg PO HS #90 tabs 07/04/24 12/28/24 Rx metformin 500 mg tablet,extended 500 mg PO BID #180 tabs 10/07/24 12/28/24 Rx release 24 hr trazodone 100 mg tablet 100 mg PO HS #90 tabs 10/07/24 12/28/24 Rx gabapentin 300 mg capsule 300 mg PO TID #270 caps 11/05/24 12/28/24 Rx levothyroxine 88 mcg tablet 88 mcg PO QAM #90 tabs 12/08/24 12/28/24 Rx duloxetine 30 mg capsule,delayed 30 mg PO HS 12/28/24 12/28/24 History release methylprednisolone 4 mg tablet See Rx Instructions .Route .COMPLEX 12/28/24 12/28/24 History zolmitriptan 5 mg tablet (Zomig) 5 mg PO DAILY PRN Headache 12/28/24 12/28/24 History Past Med/Surg History Problem List (Updated 12/28/24 @ 14:59 by Pauline Sampson MD) Hypoxia Sciatica of left side (Acute) Lumbar paraspinal muscle spasm Left lumbar radiculitis Paresthesia of left upper extremity Pain of left upper extremity Anxiety Myofascial pain Cervical spinal stenosis due to adjacent segment disease after fusion procedure Cervical radiculopathy Cervico-occipital neuralgia Cervicogenic headache Migraine Insomnia Obesity Dyslipidemia Prediabetes History of cervical spinal surgery (2018) ACDF C4-7 2019 Hypothyroidism Vitamin D deficiency Cervical disc disease Fibromyalgia GERD (gastroesophageal reflux disease) Restless legs syndrome Cervical facet joint syndrome Medical History Iliotibial band syndrome of left side Greater trochanteric bursitis of left hip Spasm of left trapezius muscle History of COVID-19 beginning 02/2022, home test, not hosp; congestion, runny nose, sore throat, fatigue>resolved Nausea and vomiting after administration of anesthetic agent Obesity Depression Surgical History Hx of prior ablation treatment neck, 2023 Hx of right breast biopsy benign History of esophagogastroduodenoscopy (EGD) Hx of colonoscopy S/P cervical spinal fusion (08/2016) ACDF C6-C7 H/O bilateral oophorectomy (1996) History of temporal artery biopsy b/l, negative History of difficult intubation C6-C7 ACDF= 08/13/16= Grade view 1, Glidescope#3, ETT 7.5 at [facility] Hx of repair of left rotator cuff Hx of cholecystectomy History of partial hysterectomy (1995) Hx of fusion of cervical spine (2010) C3-C5 Hx of sinus surgery Hx of LASIK Family History Aunt Breast cancer Maternal Aunt Grandmother (Paternal) Myocardial infarction Coronary heart disease Grandfather (Maternal) Coronary heart disease Grandfather (Maternal) Myocardial infarction Coronary heart disease Father Lung cancer Smoker Uncle Brain cancer Mother Hypertension B12 deficiency Osteoarthritis Grandmother Breast cancer Maternal Great Grandmother Grandmother (Paternal) Coronary heart disease Sister Hypertension Brother Hypertension Coronary heart disease Hx of CABG Sister Hypertension Rheumatoid arthritis Brother Hypertension Denies family history of Ovarian cancer Prostate cancer Colorectal cancer Social History Smoking Status: Never smoker Second Hand Exposure: Yes (father smoked); Do You Dip or Chew Tobacco: No; Hx Alcohol Use: No Hx Substance Use: No Preferred Language: Cymraes Communication Ability: Effective Visual Impairment: No Limitations Hearing Ability: Normal Dye Penetrant Testing Technician Required: No Beliefs That Will Affect Care: None marital status: Current Living Situation: Spouse current occupational status: retired How many Children do You have: 2 Feels Safe at Home: Yes Childhood Exposure to Second-Hand Smoke: Yes Diet: regular Diet Comment: Regular caffeine: Yes (Coffee x 2 per day.) during the past year weight has: remained stable Dental Care, Regularly: Yes Physical Activity Frequency: 3-4 Times per Week Seatbelt Use: always Sunscreen Use: Yes Assistive Devices: None Review of Systems 2 Review of Systems: All systems reviewed & are unremarkable except as noted in HPI & below Physical Exam 2 Physical Exam: Last 24h vitals reviewed GEN: no acute distress, sitting in bed HEENT: pupils equal, sclerae anicteric, moist MM RESP: normal WOB, CTAB CV: reg no mrg ABD: soft/nt/nd +BT : no garcia SKIN: warm and dry, no generalized rashes NEURO: AOx person, place, and situation. Face symmetric, speech normal, moves 4 ext spontaneously and equally Results & Data Results & Data Vital Signs (Past 12 Hours) Vital Signs Temp Pulse Pulse Resp BP BP Pulse Ox 12/28/24 14:03 70 12/28/24 13:30 97 12/28/24 13:08 72 20 152/89 H 89 L 12/28/24 11:14 36.2 C L 99 H 20 163/83 H 97 O2 Del Method O2 Flow Rate 12/28/24 14:03 12/28/24 13:30 Nasal Cannula 2 12/28/24 13:08 Room Air 12/28/24 11:14 Room Air Laboratory Results 12/28/24 12:59 12/28/24 12:59 PG Care Time/CCT Total # of Minutes Spent Total Time Spent with Patient: Total time spent is greater than 50% in coordination of care (as documented) at patient's floor/unit and/or counseling patient: Coding Diagnoses Left lumbar radiculitis M54.16 Hypoxia R09.02 Cervical radiculopathy M54.12 Prediabetes R73.03
--- NOTE | 2024-12-28 15:39 | History & Physical Report ---
<Statement entered by Pauline Sampson MD - 12/28/24 17:32> I have reviewed vital signs, chart notes, labs and imaging. I have personally seen, evaluated and examined the patient. I have also discussed the management of the patient with the MOOK and I agree with the exam findings documented in the history and physical examination and the documented assessment and plan unless otherwise stated below. pain started about 3 weeks ago, notably she slept in night on her daughter's couch prior to that which may have aggravated it. No falls or long plane/car trips. Pain is in her left buttock radiating down posterior thigh and onto lateral foot, this area also has some numbness/dysesthesia, no weakness on exam she is nontender over her L-spine she is tender in the left sciatic notch area straight leg raise reproduces her pain heart is regular no murmurs rubs or gallops lungs are clear to auscultation bilaterally I reviewed her L-spine MRI report and the films of lumbar x-ray which showed some curvature and lordosis, full stool the MRI there is some moderate foraminal narrowing at left L3/4 and L4/5, there are no areas of severe foraminal stenoses and there is no significant lumbar stenosis. no fractures were noted. A/P: Left buttock/leg pain and numbness/dysesthesiathink we are dealing with a true sciatica and not a lumbar spinal issue. Plan as per below she is also very constipated and I increased her bowel regimen Date of Service December 28, 2024 Assessment & Plan (1) Left lumbar radiculitis: (2) Hypoxia: (3) Cervical radiculopathy: (4) Prediabetes: Plan This is a 64 year old female with past medical history of prediabetes, RLS, insomnia, obesity who presented to the ED on 12/28/2024 for refractory left leg pain. While in the ED, she was given Zofran x 2 and 8mg IV morphine with minimal relief. She has then had 2 doses of IV Dilaudid (0.5mg). She then became hypoxic secondary to narcotics & is currently on 2L of oxygen. Lumbar spine XR & Lumbar spine MRI both taken and pending reads. CBC w/ mild leukocytosis of 12.26, secondary to recent steroids outpatient. BMP w/ stable renal function & electrolytes. # left lumbar radiculitis Has been seen by Dr. Alvarado outpatient --> s/p steroid injection, medrol Dosepak, Gabapentin & Muscle relaxers Lumbar spine XR & MRI both pending final reads Increase Gabapentin to 600mg TID Continue Duloxetine Dexamethasone 8mg IV q8h x 6 doses Scheduled Tylenol 650mg PO q6h PRN Tizanidine q6h & prn Dilaudid q3h for breakthrough pain. Orthospine consulted, appreciate recommendations Consider pain managment consult if pain not improving. Will require PT/OT consultations when pain level improves. # hypoxia Secondary to opioids given in ED O2 prn w/ goal of > 90% On 2L currently, wean when able. Incentive spirometer # prediabetes A1c 10/2024 - 5.9% On metformin outpatient, hold while inpatient. Expect steroid induced hyperglycemia SSI, adjust as necessary #hypothyroidism - TSH WNL 10/2024; continue levothyroxine #GERD - continue PPI #Insomnia - Continue Trazodone DVT ppx - enoxaparin Code: full Case discussed w/ Dr. Sampson at time of admission. History of Present Illness Primary Care Provider: Angeline Hills DO This is a 64 year old female with past medical history of prediabetes, RLS, insomnia, obesity who presented to the ED on 12/28/2024 for refractory left leg pain. Patito was seen and examined w/ her at bedside. Patito reports that she has been having left hip pain w/ radiation down her leg for about 3 weeks. She has been following with Dr. Alvarado for this in the outpatient setting. She was given an injection in the posterior left hip region that worked for a short period (1 day). She also had a medrol dosepack, gabapentin and muscle relaxers with no relief. Reports today she was unable to get out of bed given how severe the pain was which was what prompted her to come to the ED. at time of my encounter her pain was a 5-6/10. she denies any additional symptoms including bowel/bladder incontinence. States she has had some constipation which is causing worsening pain of her left hip when straining & sitting too long on the toilet. She denies any fevers/chills. Denies CP or SOB. Denies abdominal pain, nausea, vomiting. denies urinary urgency or frequency. States she has never had pain in this leg before like this. While in the ED, she was given Zofran x 2 and 8mg IV morphine with minimal relief. She has then had 2 doses of IV Dilaudid (0.5mg). She then became hypoxic secondary to narcotics & is currently on 2L of oxygen. Lumbar spine XR & Lumbar spine MRI both taken and pending reads. CBC w/ mild leukocytosis of 12.26, secondary to recent steroids outpatient. BMP w/ stable renal function & electrolytes. Allergies Allergy/AdvReac Type Severity Reaction Status Date / Time Penicillins Allergy Mild RASH Verified 12/28/24 14:44 topiramate [From Topamax] Allergy Mild Rash Verified 12/28/24 14:44 Home Medications Medication Instructions Recorded Confirmed Type cetirizine 10 mg tablet (Zyrtec) 10 mg PO DAILY Allergy Symptoms 08/19/20 12/28/24 History duloxetine 60 mg capsule,delayed 60 mg PO QAM #90 caps 06/05/24 12/28/24 Rx release tizanidine 4 mg capsule 4 - 8 mg (1 - 2 x 4 mg) PO BID PRN 06/05/24 12/28/24 Rx muscle spasticity #60 caps omeprazole 40 mg capsule,delayed 40 mg PO QAM #90 caps 07/04/24 12/28/24 Rx release ropinirole 0.5 mg tablet 0.5 mg PO HS #90 tabs 07/04/24 12/28/24 Rx metformin 500 mg tablet,extended 500 mg PO BID #180 tabs 10/07/24 12/28/24 Rx release 24 hr trazodone 100 mg tablet 100 mg PO HS #90 tabs 10/07/24 12/28/24 Rx gabapentin 300 mg capsule 300 mg PO TID #270 caps 11/05/24 12/28/24 Rx levothyroxine 88 mcg tablet 88 mcg PO QAM #90 tabs 12/08/24 12/28/24 Rx duloxetine 30 mg capsule,delayed 30 mg PO HS 12/28/24 12/28/24 History release methylprednisolone 4 mg tablet See Rx Instructions .Route .COMPLEX 12/28/24 12/28/24 History zolmitriptan 5 mg tablet (Zomig) 5 mg PO DAILY PRN Headache 12/28/24 12/28/24 History Past Med/Surg History Problem List (Updated 12/28/24 @ 14:59 by Pauline Sampson MD) Hypoxia Sciatica of left side (Acute) Lumbar paraspinal muscle spasm Left lumbar radiculitis Paresthesia of left upper extremity Pain of left upper extremity Anxiety Myofascial pain Cervical spinal stenosis due to adjacent segment disease after fusion procedure Cervical radiculopathy Cervico-occipital neuralgia Cervicogenic headache Migraine Insomnia Obesity Dyslipidemia Prediabetes History of cervical spinal surgery (2018) ACDF C4-7 2019 Hypothyroidism Vitamin D deficiency Cervical disc disease Fibromyalgia GERD (gastroesophageal reflux disease) Restless legs syndrome Cervical facet joint syndrome Medical History Iliotibial band syndrome of left side Greater trochanteric bursitis of left hip Spasm of left trapezius muscle History of COVID-19 beginning 02/2022, home test, not hosp; congestion, runny nose, sore throat, fatigue>resolved Nausea and vomiting after administration of anesthetic agent Obesity Depression Surgical History Hx of prior ablation treatment neck, 2023 Hx of right breast biopsy benign History of esophagogastroduodenoscopy (EGD) Hx of colonoscopy S/P cervical spinal fusion (08/2016) ACDF C6-C7 H/O bilateral oophorectomy (1996) History of temporal artery biopsy b/l, negative History of difficult intubation C6-C7 ACDF= 08/13/16= Grade view 1, Glidescope#3, ETT 7.5 at [facility] Hx of repair of left rotator cuff Hx of cholecystectomy History of partial hysterectomy (1995) Hx of fusion of cervical spine (2010) C3-C5 Hx of sinus surgery Hx of LASIK Family History Aunt Breast cancer Maternal Aunt Grandmother (Paternal) Myocardial infarction Coronary heart disease Grandfather (Maternal) Coronary heart disease Grandfather (Maternal) Myocardial infarction Coronary heart disease Father Lung cancer Smoker Uncle Brain cancer Mother Hypertension B12 deficiency Osteoarthritis Grandmother Breast cancer Maternal Great Grandmother Grandmother (Paternal) Coronary heart disease Sister Hypertension Brother Hypertension Coronary heart disease Hx of CABG Sister Hypertension Rheumatoid arthritis Brother Hypertension Denies family history of Ovarian cancer Prostate cancer Colorectal cancer Social History Smoking Status: Never smoker Second Hand Exposure: Yes (father smoked); Do You Dip or Chew Tobacco: No; Hx Alcohol Use: No Hx Substance Use: No Preferred Language: Japanese Communication Ability: Effective Visual Impairment: No Limitations Hearing Ability: Normal Supervisor Wrapping Room Required: No Beliefs That Will Affect Care: None marital status: Current Living Situation: Spouse current occupational status: retired How many Children do You have: 2 Feels Safe at Home: Yes Childhood Exposure to Second-Hand Smoke: Yes Diet: regular Diet Comment: Regular caffeine: Yes (Coffee x 2 per day.) during the past year weight has: remained stable Dental Care, Regularly: Yes Physical Activity Frequency: 3-4 Times per Week Seatbelt Use: always Sunscreen Use: Yes Assistive Devices: None Results & Data Results & Data Vital Signs (Past 12 Hours) Vital Signs Temp Pulse Pulse Resp BP BP Pulse Ox 12/28/24 14:03 70 12/28/24 13:30 97 12/28/24 13:08 72 20 152/89 H 89 L 12/28/24 11:14 36.2 C L 99 H 20 163/83 H 97 O2 Del Method O2 Flow Rate 12/28/24 14:03 12/28/24 13:30 Nasal Cannula 2 12/28/24 13:08 Room Air 12/28/24 11:14 Room Air Code Status & VTE Plan VTE Prophylaxis Plan VTE Prophylaxis will be ordered: Yes PG Care Time/CCT Total # of Minutes Spent Total Time Spent with Patient: Total time spent is greater than 50% in coordination of care (as documented) at patient's floor/unit and/or counseling patient: Coding Level of Care Code 95667 INT INP/OBS CARE 2/55MIN Diagnoses Left lumbar radiculitis M54.16 Hypoxia R09.02 Cervical radiculopathy M54.12 Prediabetes R73.03
--- NOTE | 2024-12-28 16:31 | Magnetic Resonance Report ---
EXAM: MR lumbar spine wo con CLINICAL HISTORY: Intractable left lumbar radiculopathy TECHNIQUE: MRI of the lumbar spine was performed without the administration of intravenous contrast. Sequences obtained include sagittal T1-weighted, T2-weighted, STIR (Short Tau Inversion Recovery), and axial T2-weighted sequences. COMPARISON: - 12/23/2024 FINDINGS: Vertebral Alignment: Straightening of the lumbar curvature, denoting muscle spasm. Minimal lumbar scoliosis, convex to the left side. Mild forward slippage of L4 over L5 secondary to bilateral L4-5 facet arthropathy. Degenerative changes of the lumbar spine with marginal bone hypertrophy of the vertebral endplates and reduced disc hydration denoting dessication. Normal alignment of the lumbar spine without evidence of fracture or malalignment. Marrow signals are normal. Vertebral Bodies and Intervertebral Discs: Normal vertebral body height, no fracture identified. No lytic or sclerotic lesions. Normal bone marrow signal intensity. [id number] analysis: T12-L1: There is no significant disc pathology. No spinal canal stenosis. No neural foraminal stenosis.No ligamentum flavum hypertrophy and facet joint arthropathy. L1-L2: There is no significant disc pathology. No spinal canal stenosis. No neural foraminal stenosis.No ligamentum flavum hypertrophy and facet joint arthropathy. L2-L3: There is a mild disc bulge, measuring 2.7mm with left foraminal extensions, causing mild bilateral foraminal narrowing more on the left side. No spinal canal stenosis. No ligamentum flavum hypertrophy and facet joint arthropathy. L3-L4: There is a disc bulge, measuring 3.4mm, with 5.8 mm left foraminal protursion along with mild bilateral facet arthropathy, causing moderate left and mild right neural foraminal narrowing. No spinal canal stenosis. No ligamentum flavum hypertrophy. L4-L5: There is a posterior disc bulge, measuring 4.8mm, with a left foraminal protrusion, along with mild buckling of ligamentum flavum, causing mild spinal canal narrowing and bilateral facet arthropathy with a left small facet synovial cyst, causing right mild and moderate left foraminal stenosis. L5-S1: There is a small central disc protrusion, measuring 2.5mm, along with bilateral facet arthropathy, hypertrophic on the left side, causing bilateral mild foraminal narrowing.No spinal canal stenosis. No ligamentum flavum hypertrophy . Spinal Cord and Nerve Roots: Conus medullaris terminates at the L1 level without abnormality. Nerve roots appear unremarkable bilaterally. The lower thoracic spinal cord, conus medullaris, and cauda equina nerve roots are unremarkable. Soft Tissues: Paraspinal soft tissues appear normal without evidence of abnormal signal intensity or mass lesions. Lumbar deep subcutaneous fluid signal. IMPRESSION: 1. Straightening of the lumbar curvature, denoting muscle spasm. 2. Minimal lumbar scoliosis, convex to the left side. 3. 1st degree degenerative spondylolithesis of L4 over L5 vertebrae. 4. Degenerative changes with multiple disc bulges and multilevel facet arthropathy, causing varying degrees of bilateral mild to severe foraminal stenosis, most evident at the L4-5 disc level, resulting in moderate left foraminal stenosis at this level and compression of the left exiting nerve root. 5. The previous x ray was reviewed. Electronically signed by Jason Reyes 12-28-2024 4:30 PM
[2024-12-28] MEDS ORDERED: DEXAMETHASONE SOD INJ 4 MG/ML VIAL IV SCH (17:30)
[2024-12-28] MEDS ORDERED: DEXTROSE 50% 50 ML SYRINGE IV PRN (17:30)
[2024-12-28] MEDS ORDERED: GLUCOSE 40% GEL 15 GM TUBE PO PRN (17:30)
[2024-12-28] MEDS ORDERED: ALUMINUM/MAGNESIUM SUSP 30 ML UDC PO PRN (17:30)
[2024-12-28] MEDS ORDERED: GLUCOSE 10 TAB/TUBE PO PRN (17:30)
[2024-12-28] MEDS ORDERED: MAGNESIUM HYDROXIDE SUSP 30 ML UDC PO PRN (17:30)
[2024-12-28] MEDS ORDERED: CARBOHYDRATES FOR HYPOGLYCEMIA PO PRN (17:30)
[2024-12-28] MEDS ORDERED: GLUCAGON FOR INJ 1 MG VIAL SQ PRN (17:30)
[2024-12-28] MEDS: ONDANSETRON HOME PACK 4MG OD TAB PO ONE (17:50)
[2024-12-28] MEDS: ACETAMINOPHEN 325 MG TAB PO SCH (18:19)
[2024-12-28] MEDS: ONDANSETRON INJ 2 MG/ML 2 ML VIAL IV PRN (18:20)
[2024-12-28] MEDS: INSULIN ASPART PER UNIT CHARGE SC SCH (18:25)
[2024-12-28] MEDS: dexAMETHasone 8 MG in SYRINGE 0 ML IV SCH (19:15)
[2024-12-28] MEDS: ONDANSETRON INJ 2 MG/ML 2 ML VIAL IV STA (20:00)
[2024-12-28] MEDS: POLYETHYLENE (MIRALAX) 17 GM PACK PO SCH (20:53)
[2024-12-28] MEDS: MELATONIN 3 MG TAB PO PRN (20:53)
[2024-12-28] MEDS: GABAPENTIN 300 MG CAP PO SCH (20:53)
[2024-12-28] MEDS: SENNA 8.6 MG TAB PO SCH (20:54)
[2024-12-29 07:22] VITALS: RESP 16
[2024-12-29 07:54] LABS: Hematocrit (blood only) 39.9 % (37.0-47.0); Hemoglobin 13.4 g/dl (12.0-16.0); Mean Corpuscular Hemoglobin 29.4 pg (25.0-34.0); Mean Corpuscular Volume 87.5 fL (80.0-100.0); Platelet Count 317 K/uL (130-400); RDW Standard Deviation 41.5 fL (36.4-46.3); Red Blood Count 4.56 M/uL (4.20-5.40); White Blood Count 8.68 K/ul (4.8-10.8)
[2024-12-29 08:24] LABS: Anion Gap 4.0 (3-11); Blood Urea Nitrogen 16.0 mg/dl (6-23); Calcium 9.1 mg/dl (8.6-10.3); Carbon Dioxide 33.0 mmol/L (21-32); Chloride 96.0 mmol/L (98-107); Creatinine Clr Calc Pharmacy 83.3 ml/min; Glucose 139.0 mg/dl (70-99(Fasting)); Potassium 4.6 mmol/L (3.5-5.1); Sodium 133.0 mmol/L (136-145)
[2024-12-29] MEDS: ENOXAPARIN INJ 40 MG/0.4 ML SYR SQ SCH (08:37)
[2024-12-29] MEDS: LEVOTHYROXINE SODIUM 88 MCG TABLET PO SCH (08:40)
[2024-12-29] MEDS: CETIRIZINE HCL 10 MG TABLET PO SCH (08:40)
--- NOTE | 2024-12-29 11:03 | Orthopedic Consultation ---
Date of Service December 29, 2024 Assessment & Plan (1) Low back pain: (2) Piriformis syndrome of left side: Plan I reviewed the imaging findings with the patient today. She does have significant left lower extremity pain however based on her exam I feel the pain is more likely true sciatic nerve pain rather than lumbar radiculopathy. There is no severe stenosis in the lumbar spine, I did explain there is a mild to moderate degree of lateral recess stenosis which could possibly help if decompressed however her symptoms are more posterior leg into the bottom of the foot which does not correlate with L5 dermatomal pattern. She is a patient of pain management here at [facility], she also has a history of trochanteric bursitis and iliotibial band syndrome which I think is likely aggravated by the back pain and sciatica. I discussed with her that I would like to continue with medication management and physical therapy, will also place a pain consult to evaluate if she may benefit from a possible piriformis injection or other epidural injections. No indication for emergent surgical management however if she is unable to mobilize and get pain control we will revisit this discussion in the future. Will await for pain management recommendations and possibility of an injection for her. Okay for discharge from spine perspective once pain controlled and mobilizing. History of Present Illness Reason for Consultation: Left leg pain, low back pain Requesting Physician: Hospital medicine Attending Physician: Pauline Sampson MD Patient is a 64-year-old female who is known to me from the office as I was evaluating her cervical spine. Last week she came to the office and was experiencing left-sided low back pain as well as posterior leg pain after sleeping on a couch at a relatives house. She was neurologically intact, she was given an IM steroid and Toradol injection in the office and had relief of pain for approximately 2 days. On Sunday she presented to the emergency department with intractable pain radiating down the left lower extremity and numbness in the left foot. No changes in bowel or bladder function. Difficulty with pain control and ambulation, she was admitted by the hospitalist service after MRI of the lumbar spine. Today she reports some improvement with the pain, reports it is nowhere near as severe as yesterday however does still have pain with movement, some numbness of the left foot mostly following an S1 dermatomal pattern. Allergies Allergy/AdvReac Type Severity Reaction Status Date / Time Penicillins Allergy Mild RASH Verified 12/28/24 14:44 topiramate [From Topamax] Allergy Mild Rash Verified 12/28/24 14:44 Home Medications Medication Instructions Recorded Confirmed Type cetirizine 10 mg tablet (Zyrtec) 10 mg PO DAILY Allergy Symptoms 08/19/20 12/28/24 History duloxetine 60 mg capsule,delayed 60 mg PO QAM #90 caps 06/05/24 12/28/24 Rx release tizanidine 4 mg capsule 4 - 8 mg (1 - 2 x 4 mg) PO BID PRN 06/05/24 12/28/24 Rx muscle spasticity #60 caps omeprazole 40 mg capsule,delayed 40 mg PO QAM #90 caps 07/04/24 12/28/24 Rx release ropinirole 0.5 mg tablet 0.5 mg PO HS #90 tabs 07/04/24 12/28/24 Rx metformin 500 mg tablet,extended 500 mg PO BID #180 tabs 10/07/24 12/28/24 Rx release 24 hr trazodone 100 mg tablet 100 mg PO HS #90 tabs 10/07/24 12/28/24 Rx gabapentin 300 mg capsule 300 mg PO TID #270 caps 11/05/24 12/28/24 Rx levothyroxine 88 mcg tablet 88 mcg PO QAM #90 tabs 12/08/24 12/28/24 Rx duloxetine 30 mg capsule,delayed 30 mg PO HS 12/28/24 12/28/24 History release methylprednisolone 4 mg tablet See Rx Instructions .Route .COMPLEX 12/28/24 12/28/24 History zolmitriptan 5 mg tablet (Zomig) 5 mg PO DAILY PRN Headache 12/28/24 12/28/24 History Past Med/Surg History Problem List (Updated 12/29/24 @ 11:01 by Miguel Alvarado MD) Piriformis syndrome of left side Low back pain Hypoxia Sciatica of left side (Acute) Lumbar paraspinal muscle spasm Left lumbar radiculitis Paresthesia of left upper extremity Pain of left upper extremity Anxiety Myofascial pain Cervical spinal stenosis due to adjacent segment disease after fusion procedure Cervical radiculopathy Cervico-occipital neuralgia Cervicogenic headache Migraine Insomnia Obesity Dyslipidemia Prediabetes History of cervical spinal surgery (2018) ACDF C4-7 2019 Hypothyroidism Vitamin D deficiency Cervical disc disease Fibromyalgia GERD (gastroesophageal reflux disease) Restless legs syndrome Cervical facet joint syndrome Medical History Iliotibial band syndrome of left side Greater trochanteric bursitis of left hip Spasm of left trapezius muscle History of COVID-19 beginning 02/2022, home test, not hosp; congestion, runny nose, sore throat, fatigue>resolved Nausea and vomiting after administration of anesthetic agent Obesity Depression Surgical History Hx of prior ablation treatment neck, 2023 Hx of right breast biopsy benign History of esophagogastroduodenoscopy (EGD) Hx of colonoscopy S/P cervical spinal fusion (08/2016) ACDF C6-C7 H/O bilateral oophorectomy (1996) History of temporal artery biopsy b/l, negative History of difficult intubation C6-C7 ACDF= 08/13/16= Grade view 1, Glidescope#3, ETT 7.5 at [facility] Hx of repair of left rotator cuff Hx of cholecystectomy History of partial hysterectomy (1995) Hx of fusion of cervical spine (2010) C3-C5 Hx of sinus surgery Hx of LASIK Family History Aunt Breast cancer Maternal Aunt Grandmother (Paternal) Myocardial infarction Coronary heart disease Grandfather (Maternal) Coronary heart disease Grandfather (Maternal) Myocardial infarction Coronary heart disease Father Lung cancer Smoker Uncle Brain cancer Mother Hypertension B12 deficiency Osteoarthritis Grandmother Breast cancer Maternal Great Grandmother Grandmother (Paternal) Coronary heart disease Sister Hypertension Brother Hypertension Coronary heart disease Hx of CABG Sister Hypertension Rheumatoid arthritis Brother Hypertension Denies family history of Ovarian cancer Prostate cancer Colorectal cancer Social History Smoking Status: Never smoker Second Hand Exposure: Yes (father smoked); Do You Dip or Chew Tobacco: No; Hx Alcohol Use: Yes Alcohol type: wine Alcohol Intake Frequency: Monthly or Less Hx Substance Use: No Preferred Language: Bulgarian Communication Ability: Effective Visual Impairment: No Limitations Hearing Ability: Normal Coordinator Cardiopulmonary Services Required: No Beliefs That Will Affect Care: None marital status: Current Living Situation: Spouse current occupational status: retired How many Children do You have: 2 Feels Safe at Home: Yes Childhood Exposure to Second-Hand Smoke: Yes Diet: regular Diet Comment: Regular caffeine: Yes (Coffee x 2 per day.) during the past year weight has: remained stable Dental Care, Regularly: Yes Physical Activity Frequency: 3-4 Times per Week Seatbelt Use: always Sunscreen Use: Yes Assistive Devices: Glasses Review of Systems All systems reviewed & are unremarkable except as noted in HPI & below. Physical Exam Constitutional: Well developed, appears stated age Psych: patient is coherent and answers questions appropriately, normal affect Eye: Normal gaze, no redness to sclera, pupils round and equal Pulm: Normal respiratory effort, no wheezing Cardiovascular: no significant peripheral edema, palpable DP/PT pulses Skin shows no rashes, lesions No midline or paraspinal tenderness with palpation over the lumbar spine, no stepoffs Motor strength is 5/5 in right hip flexors, quadriceps, tibialis anterior, extensor hallucis longus, and gastroc/soleus complex, diffusely 4 out of 5 strength on the left in the same muscle groups most likely limited by pain Sensation intact to light touch in the L2-S1 dermatomes bilaterally some paresthesias left S1 dermatome Patient has limited movement of the piriformis muscle, unable to cross left ankle over her right leg Results & Data Results & Data Laboratory Results . Diagnostic Findings MRI of the lumbar spine is available for review today and interpreted personally. Mild stable degenerative spondylolisthesis at L4-5, moderate to severe facet arthropathy at this level. There is a moderate degree of left lateral recess stenosis with possible contact of the L5 nerve root however no severe compression. Small disc bulge in the left L4-5 foramen however no severe compression of the exiting L4 nerve root. Moderate disc bulge at the L3-4 level with no significant central canal or lateral recess stenosis, mild to moderate left foraminal stenosis however preserved cuff of epidural fat around the exiting L3 nerve root. PG Care Time/CCT Total # of Minutes Spent Total Time Spent with Patient: Total time spent is greater than 50% in coordination of care (as documented) at patient's floor/unit and/or counseling patient: Coding Level of Care Code 10603 IN/OBS CONSULT LVL 3,45M Diagnoses Acute left-sided low back pain with left-sided sciatica M54.42 Chronicity: acute Back pain laterality: left Sciatica presence: with sciatica Sciatica laterality: sciatica of left side Piriformis syndrome of left side G57.02 (1) Low back pain Chronicity: acute Back pain laterality: left Sciatica presence: with sciatica Sciatica laterality: sciatica of left side Qualified Code(s): M54.42 - Lumbago with sciatica, left side
[2024-12-29 14:33] VITALS: BP 119/71; PULSE 76; TEMP 98.6; O2SAT 93
--- NOTE | 2024-12-29 14:33 | Discharge Summary ---
Discharge Summary Date of Service December 29, 2024 Principal Dx & Hospital Course #1 = Principal Diagnosis (1) Left lumbar radiculitis: (2) Hypoxia: (3) Cervical radiculopathy: (4) Prediabetes: Plan This is a 64 year old female with past medical history of prediabetes, RLS, insomnia, obesity who presented to the ED on 12/28/2024 for refractory left leg pain. While in the ED, she was given Zofran x 2 and 8mg IV morphine with minimal relief. She has then had 2 doses of IV Dilaudid (0.5mg). She then became hypoxic secondary to narcotics & is currently on 2L of oxygen. Lumbar spine XR & Lumbar spine MRI both taken and pending reads. CBC w/ mild leukocytosis of 12.26, secondary to recent steroids outpatient. BMP w/ stable renal function & electrolytes. # left lumbar radiculitis Has been seen by Dr. Alvarado outpatient --> s/p steroid injection, medrol Dosepak, Gabapentin & Muscle relaxers Lumbar MRI: straightening of lumbar curvature, denoting muscle spasm. minimal lumbar scoilosis. 1st degree degenerative spondylolithesis of L4 over L5. degenerative changes w/ multiple disc bulges & multi-level facet arthropathy causing varying degrees of b/l mild to severe foraminal stenosis, most evident @ L4-L5 disc level, resulting in moderate left foraminal stenosis @ this level & compression of left exiting nerve root. Increase Gabapentin to 600mg TID Continue Duloxetine s/p dexamethasone, switched to prednisone taper on dc. Scheduled Tylenol 650mg PO q6h PRN Tizanidine q6h & oxycodone 5mg PO q4h prn for breakthrough pain on discharge. Orthospine consulted --> recommending follow up w/ pain management to see for a possible piriformis injection Discussed w/ Dr. Amador --> she can be evaluated at 8:45 am on 12/30 at their office. PT/OT --> okay for discharge home. # hypoxia - resolved. Secondary to opioids given in ED O2 prn w/ goal of > 90% Incentive spirometer # prediabetes A1c 10/2024 - 5.9% Resume outpatient regimen on discharge. Close follow up w/ PCP for recheck of a1c given she has been on steroids. #hypothyroidism - TSH WNL 10/2024; continue levothyroxine #GERD - continue PPI #Insomnia - Continue Trazodone updated at bedside 12/29 Discussed w/ Dr. Alvarado & Dr. Amador 12/29 Discharged home 12/29 Admission HPI Per Admitting Provider This is a 64 year old female with past medical history of prediabetes, RLS, insomnia, obesity who presented to the ED on 12/28/2024 for refractory left leg pain. Patito was seen and examined w/ her at bedside. Patito reports that she has been having left hip pain w/ radiation down her leg for about 3 weeks. She has been following with Dr. Alvarado for this in the outpatient setting. She was given an injection in the posterior left hip region that worked for a short period (1 day). She also had a medrol dosepack, gabapentin and muscle relaxers with no relief. Reports today she was unable to get out of bed given how severe the pain was which was what prompted her to come to the ED. at time of my encounter her pain was a 5-6/10. she denies any additional symptoms including bowel/bladder incontinence. States she has had some constipation which is causing worsening pain of her left hip when straining & sitting too long on the toilet. She denies any fevers/chills. Denies CP or SOB. Denies abdominal pain, nausea, vomiting. denies urinary urgency or frequency. States she has never had pain in this leg before like this. While in the ED, she was given Zofran x 2 and 8mg IV morphine with minimal relief. She has then had 2 doses of IV Dilaudid (0.5mg). She then became hypoxic secondary to narcotics & is currently on 2L of oxygen. Lumbar spine XR & Lumbar spine MRI both taken and pending reads. CBC w/ mild leukocytosis of 12.26, secondary to recent steroids outpatient. BMP w/ stable renal function & electrolytes. Discharge Exam Constitutional WD/WN, vitals as above Eyes PERRL, conjunctivae normal, anicteric sclerae Respiratory normal respiratory effort Musculoskeletal no cyanosis or clubbing, extremities motor strength 5/5 Skin no rashes, warm and dry Neurologic PERRL, EOMI, accommodation nl, no face palsy, no dysarthria Psychiatric A+Ox3, euthymic affect Discharge Plan Discharge Items Patient Disposition: Home - Self-Care Reason For Visit: INTRACTABLE SCIATICA Discharge Diagnosis: Sciatic pain Condition on Discharge: Good Activity: Resume your previous activity Non-emergency contact: Primary Care Provider, Surgeon and Pain Management Call non-emergency contact if: you have any medication questions, your symptoms worsen and your pain is concerning for you Follow-up/Referrals: Lakeisha Amador DO [Physician] - Angeline Hills DO [Primary Care Provider] - 01/06/25 11:00 am Miguel Alvarado MD [Surgeon] - Diet: Carb Consistent or DM2 Addtl Attending Provider Instructions: Mrs. Hall, You were recently hospitalized for leg pain. You were evaluated by orthopedic spine surgery and are going to be evaluated by pain management tomorrow morning for an injection to help with your pain. Please see recommendations below regarding your discharge. Please take your steroid taper as prescribed. This can start tomorrow, 12/30 Please take Tylenol 1000mg every 8 hours around the clock to help reduce pain. You may also use Ibuprofen 400mg every 6 hours as needed as well. Please take Zanaflex every 6 hours for muscle spasms Your gabapentin has been increased to 600mg three times daily to help with nerve pain. Please take Oxycodone 5mg every 4 hours as needed for breakthrough pain. Please stay on a bowel regimen to ensure you are moving your bowels: options include 1 capful of Miralax daily, or 2 Senna S tablets daily. Both of these options are sold over the counter at the pharmacy. The remainder of your outpatient medications may be resumed unless stated otherwise below. Please follow up with pain management tomorrow morning, 12/30 at 8:45am at the [facility] office. Their address & phone number is above. Please follow up with ortho spine outpatient. Please follow up with your PCP within 1-2 weeks of discharge. Best of luck! Heather Esqueda PA-C Pending Studies at Discharge: No Stand-Alone Forms: [employer], Smoking Cessation Medications and DC Order Prescriptions: New tizanidine 4 mg Tablet 4 mg PO Q6H Qty: 30 0RF gabapentin 300 mg Capsule 600 mg PO TID Qty: 30 0RF prednisone 10 mg tablet 10 mg PO DIRECTED Qty: 30 0RF Rx Instructions: Please take 4 tablets by mouth for 3 days followed by 3 tablets by mouth for 3 days followed by 2 tablets by mouth for 3 days followed by 1 tablet by mouth for 3 days. oxycodone 5 mg tablet 5 mg PO Q4H PRN (Reason: pain (scale score 8-10)) Qty: 10 0RF Continued cetirizine [Zyrtec] 10 mg tablet 10 mg PO DAILY duloxetine 60 mg capsule,delayed release(DR/EC) 60 mg PO QAM Qty: 90 3RF omeprazole 40 mg capsule,delayed release(DR/EC) 40 mg PO QAM Qty: 90 2RF ropinirole 0.5 mg tablet 0.5 mg PO HS Qty: 90 1RF metformin 500 mg tablet extended release 24 hr 500 mg PO BID Qty: 180 1RF trazodone 100 mg tablet 100 mg PO HS Qty: 90 1RF levothyroxine 88 mcg tablet 88 mcg PO QAM Qty: 90 1RF zolmitriptan [Zomig] 5 mg tablet 5 mg PO DAILY MDD 10mg/24hr PRN (Reason: Headache) Rx Instructions: take 1 tab at onset of headache; if no relief, may repeat 1 tab after at least 2 hrs; max = 2 tabs/24 hrs PO duloxetine 30 mg capsule,delayed release(DR/EC) 30 mg PO HS Discontinued gabapentin 300 mg capsule 300 mg PO TID Qty: 270 3RF tizanidine 4 mg capsule 4 - 8 mg PO BID PRN (Reason: muscle spasticity) Qty: 60 3RF Rx Instructions: Take 1- 2 cap orally twice a day PRN; methylprednisolone 4 mg tablet See Rx Instructions .ROUTE .COMPLEX Rx Instructions: Start Date 12/25/24 x 6 day supply: take 6 tablets by mouth at same time day 1; 5 tabs day 2; 4 tabs day 3; 3 tabs day 4; 2 tabs day 5; 1 tab day 6. take with food and water in the morning Discharge Orders: Discharge Order (Routine); Ordered 12/29/24 Ordered By: Heather Porter/Other Patient Handouts: Sciatica Exercise, ED Sciatica Admission Data Admit Date/Time: 12/28/24 15:16 Attending Provider: Pauline Sampson Admit Provider: Pauline Sampson Primary Care Provider: Angeline Hills. Other Providers: Paluine Sampson; Miguel Alvarado; Kervin Ocampo; Lakeisha Amador; Aaron Leach; Miguel Souza; Saba Kaur Other Interventions: Discharge Summary Assessment (RN) Last Done: 12/29/24 14:47 Hospital Stay Data Consultations 12/28/24 15:18 ED Decision to Admit Stat 12/28/24 17:30 Consult Orthopedic Spine Surgery Routine 12/29/24 10:56 Consult Pain Management Routine Diagnostic Imagining Performed 12/28/24 14:18 MR lumbar spine wo con Stat Pending Results Patient Have Any Pending Studies at Discharge: No Discharge Instructions Given to Patient (Per Discharging Provider) Judd Walters were recently hospitalized for leg pain. You were evaluated by orthopedic spine surgery and are going to be evaluated by pain management tomorrow morning for an injection to help with your pain. Please see recommendations below regarding your discharge. Please take your steroid taper as prescribed. This can start tomorrow, 12/30 Please take Tylenol 1000mg every 8 hours around the clock to help reduce pain. You may also use Ibuprofen 400mg every 6 hours as needed as well. Please take Zanaflex every 6 hours for muscle spasms Your gabapentin has been increased to 600mg three times daily to help with nerve pain. Please take Oxycodone 5mg every 4 hours as needed for breakthrough pain. Please stay on a bowel regimen to ensure you are moving your bowels: options include 1 capful of Miralax daily, or 2 Senna S tablets daily. Both of these options are sold over the counter at the pharmacy. The remainder of your outpatient medications may be resumed unless stated otherwise below. Please follow up with pain management tomorrow morning, 12/30 at 8:45am at the [facility] office. Their address & phone number is above. Please follow up with ortho spine outpatient. Please follow up with your PCP within 1-2 weeks of discharge. Best of luck! Heather Esqueda PA-C Total Time Total Time Spent Total Time Spent (In Minutes): 55 Total Time Includes: Examination of the Patient, Discharge Planning, Medication Reconciliation and Communication With Other Providers Coding Level of Care Code 20476 INP/OBS DISCH >30 MIN Diagnoses Left lumbar radiculitis M54.16 Hypoxia R09.02 Cervical radiculopathy M54.12 Prediabetes R73.03
== END 2024-12-29 15:02 | disposition home or self-care (01) ==
LOC: SUATTDRO → 3N 11:07 → ED 11:07 → 3N 17:10